=== PATIENT | female | born 1925 | race Caucasian/White ===

== ENCOUNTER 2016-07-25 18:07 | Inpatient (IN) ==
[2016-07-25] MEDS ORDERED: MORPHINE 2 MG/1 ML SYRINGE IV STA (18:26)
[2016-07-25] MEDS ORDERED: NITROGLYCERIN 2% OINT 1 INCH/GM PACK TOP STA (18:26)
[2016-07-25] MEDS ORDERED: ASPIRIN 325 MG TABLET PO STA (18:26)
[2016-07-25] MEDS ORDERED: ALUM/MAG/SIMETH/LIDO VISC 1:1 30 ML BOTTLE PO STA (18:26)
[2016-07-25] MEDS ORDERED: ONDANSETRON 4 MG/2 ML VIAL IV STA (18:26)
--- NOTE | 2016-07-25 18:52 | EKG Report ---
Stationary ECG Study [facility] ER Test Date: 07/25/2016 6:51:02 PM Pat Name: CHRISTIAN MANJARREZ Department: Room: 278 Gender: F [employer]ian [employer] Developer: : 1925 Requested by: Andrew Perdue Order Number: [id number] Reading MD: LYUDMILA DISLA Intervals [place] Rate: 81 P: 82 NH: 271 QRS: -51 QRSD: 141 T: 67 QT: 431 QTc: 468 Interpretive Statements SINUS RHYTHM WITH PROLONGED [place] INTERVAL MARKED LEFT AXIS DEVIATION LEFT BUNDLE BRANCH BLOCK Electronically Signed On 07-26-16 14:25:53 CDT by LYUDMILA DISLA [email or web address]
[2016-07-25] MEDS ORDERED: ONDANSETRON 4 MG/2 ML VIAL ONE (19:10)
[2016-07-25] MEDS ORDERED: NITROGLYCERIN 2% OINT 1 INCH/GM PACK TOP ONE (19:10)
[2016-07-25] MEDS ORDERED: ALUM/MAG/SIMETH/LIDO VISC 1:1 30 ML BOTTLE PO ONE (19:11)
[2016-07-25] MEDS ORDERED: MORPHINE 2 MG/1 ML SYRINGE ONE (19:11)
[2016-07-25] MEDS ORDERED: ASPIRIN 325 MG TABLET ONE (19:11)
--- NOTE | 2016-07-25 19:17 | XRay Report ---
XR chest 1V portable Indication: Chest pain. Comparison: Chest x-ray 07/22/2016 chest x-ray 09/11/2015. Technique: Portable AP chest was performed. Findings: Borderline to mild cardiomegaly is stable. F is chronic calcification of the aortic knob and mild ectasia of the thoracic aorta also is stable. Density in the upper right paratracheal region that likely in part reflects vascular opacification is stable. Trachea is in midline. Cardiac pacemaker is stable. Lungs are clear. Minimal blunting left costophrenic angle is present. Bones and soft tissues demonstrate no acute findings. Right-sided rotator cuff tear is not excluded. Impression: 1. Appearance of the chest is stable over the time frame of comparison. No active process is demonstrated. 07/25/2016 7:13 PM PROCEDURE INTERPRETED AT [facility] DEPARTMENT OF RADIOLOGY Final Report Signed by: Dr. Chris Lin
[2016-07-25 19:27] LABS: Basophils % 0.6 % (0.0-0.8); Eosinophils # 0.3 10*3/uL (0.0-0.87); Eosinophils % 3.7 % (0.00-10.9); Hematocrit 39.4 VOL% (35.7-47.0); Hemoglobin 13.1 GM/DL (12.0-16.0); Immature Granulocytes % 0.6 %; Immature Granulocytes Absolute 0.04 #; Lymphocytes # 1.4 10*3/uL (1.4-4.0); Lymphocytes % 20.6 % (21.3-54.2); Mean Corpuscular HGB Conc 33.2 GM/DL (32-36); Mean Corpuscular Hemoglobin 31 PG (27-34); Mean Corpuscular Volume 93.1 FL (87-102); Mean Platelet Volume 10.4 FL (9.6-12.0); Monocytes # 0.6 10*3/uL (0.11-0.8); Monocytes % 8.2 % (1.7-12.7); Neutrophils # 4.5 10*3/uL (1.4-7.4); Neutrophils % 66.3 % (38.7-73.9); Platelet Count 225 T/CUMM (130-400); Red Blood Count 4.23 MC/CUMM (3.8-5.5); Red Cell Distribution Width 13.2 % (9.3-17.3); White Blood Count 6.8 T/CUMM (4-12)
[2016-07-25 19:34] LABS: PT Patient Result 10.6 SECS
[2016-07-25 19:37] LABS: Alanine Aminotransferase 13 U/L (13-56); Albumin 3.3 G/DL (3.4-5.0); Alkaline Phosphatase 66 U/L (45-117); Aspartate Amino Transferase 18 U/L (0-37); Bilirubin,Total < 0.39 MG/DL (0.2-1.0); Blood Urea Nitrogen 24 MG/DL (7-18); Calcium 8.9 MG/DL (8.5-10.1); Glucose 153 MG/DL (74-106); Osmolality,Calculated 285.4 MOS/KG (273-304); Potassium 4.1 MMOL/L (3.5-5.1); Sodium 140 MMOL/L (136-145); Total Protein 6.5 G/DL (6.4-8.3)
--- NOTE | 2016-07-25 19:46 | Emergency Department Note ---
Parisa Olivier Gwan, am scribing for, and in the presence of, Andrew Lyon MD 18 :41. Camron Olivier Charles R, MD, personally performed the services described in this documentation, ascribed by Destiney Mccauley in my presence, and it is both accurate and complete 946 . Arrival - Arrival Chief Complaint: Chest Pain Stated Complaint: Chest Pain/Pace maker ED Nursing Triage Note: pacemaker was placed on Thur per Dr Ross - pt states that she has been having chest pain onset on Sat Mode of Arrival: Wheelchair Limitations: No Limitations Source: Patient, Significant other, Family, Old Records Reviewed, RN Notes Reviewed Time Seen by Provider: 07/25/16 18:18 - History of Present Illness HPI Narrative: Patient is a 89 y/o white female who presents to the ED with a c/o pain to bilateral shoulders, chest discomfort and generalized weakness. Family confirmed that pt had pacemaker inserted by Dr. Ross 07/21/2016 due to problems with heart rhythm and that pt has had generalized weakness and generalized body aches prior to procedure. Patient also has a harness across her left shoulder. Family stated that the harness was placed to limit ROM after pacemaker was placed. Patient describes her chest pain as a "sunken" feeling, that she has "weight" on her chest with some fluttering. Patient continued to say that when any muscle on her body is touched, she has a shooting pain that radiates all over her body. She confirmed that her muscle pain has an onset 1 year ago and that the onset of remaining sxs have an onset 2 days ago. She denies any hx of heart disease or heart cath. During exam, patient had no signs of distress and was awake and alert. Onset (ago): day(s) Consistency: constant Severity: moderate Date of Last Menstrual Period: dereje Allergies/Adverse Reactions: Allergies Allergy/AdvReac Type Severity Reaction Status Date / Time latex Allergy Mild Rash/Tears Verified 09/10/15 15:57 Skin metronidazole [From Flagyl] Allergy Unknown/Unable Verified 09/10/15 15:57 to obtain sulfamethoxazole AdvReac Intermediate Severe Verified 09/10/15 15:57 [From Bactrim] Diarrhea/Nausea trimethoprim [From Bactrim] AdvReac Intermediate Severe Verified 09/10/15 15:57 Diarrhea/Nausea Home Medications: Home Medications Medication Instructions Recorded Confirmed Type Anastrozole 1 mg PO DAILY 02/19/15 07/25/16 History Aspirin [Ecotrin] 81 mg PO DAILY 02/19/15 07/25/16 History Citalopram [CeleXA] 40 mg PO DAILY 02/19/15 07/25/16 History Latanoprost [Latanoprost 0.005 % 1 drop BOTH EYES BEDTIME 02/19/15 07/25/16 History Oph Soln] Levothyroxine Tab [Synthroid Tab] 175 mcg PO DAILY 02/19/15 07/25/16 History Temazepam [Restoril] 15 mg PO BEDTIME PRN 02/19/15 07/25/16 History Triamterene/Hctz 75-50 Tab 1 tablet PO QAM 02/19/15 07/25/16 History [Maxzide 75-50] ALPRAZolam [Alprazolam] 0.5 mg PO 1200 09/10/15 07/25/16 History Calcium (Citr)/Vit D 200-125 1 tablet PO BEDTIME 09/10/15 07/25/16 History [Citracal + D] Donepezil [Aricept] 10 mg PO DAILY 09/10/15 07/25/16 History Meclizine [Antivert] 25 mg PO TID PRN 09/10/15 07/25/16 History Phrkk-S-Gfqtdymtemwtn [Beano] 2 tablet PO TID W/MEALS PRN 07/21/16 07/25/16 History Cheratussin Ac Syp 2 teaspoon PO QID PRN 07/21/16 07/25/16 History Fluticasone 50 Mcg Nasal [place] 1 spray BOTH NARES BID PRN 07/21/16 07/25/16 History [Flonase Nasal [place]] Lidocaine HCl [Lidocaine 3% Cream] See Protocol TOP DIRECTED PRN 07/21/16 History Ondansetron Odt Tab [Zofran Odt] 4 mg SL Q8HR PRN 07/21/16 07/25/16 History Oxycodone HCl/Acetaminophen 0.5 tablet PO 1200 07/21/16 07/25/16 History [Oxycodone-Acetaminophen 10-325] Oxycodone HCl/Acetaminophen 1 tablet PO BEDTIME 07/21/16 07/25/16 History [Oxycodone-Acetaminophen 10-325] Sodium Bicarbonate/Sod Citrat 1 tablet PO DIRECTED PRN 07/21/16 07/25/16 History [Vivi-[place] Heartburn Tab Eff] Cyanocobalamin (Vitamin B-12) 2,500 mcg PO BID 07/25/16 07/25/16 History [Vitamin B12] Multivitamin [One Daily 1 each PO DAILY 07/25/16 07/25/16 History Multivitamin] glipiZIDE [Glipizide ER] 2.5 mg PO DAILY 07/25/16 07/25/16 History Review of System - Review of System 12 point system: reviewed and no additional remarkable complaints except as stated - Review of System Constitutional: Present: as per HPI, weakness. Absent: chills, fever Eyes: Absent: discharge, pain Head/Ears/Nose/Throat: Absent: earache Respiratory: Absent: cough Cardiovascular: Present: as per HPI, chest pain Gastrointestinal: Absent: abdominal pain, nausea, vomiting, diarrhea Genitourinary female: Absent: dysuria Musculoskeletal: Present: arthralgia, other (bilateral shoulder pain ). Absent : arm pain, leg pain, neck pain Skin: Absent: rash, lesions Neurological: Present: as per HPI, weakness, other (muscle/nerve pain ) Psychiatric: Absent: anxiety, depression Medical,Surgical,& Family Hx - Medical History Cardio: History of: Hypertension, Pacemaker, Cardiovascular Problems (A fib) Psychological: History of: Anxiety Disorders Neurology: No history of: Seizures HEENT: History of: Ear Problem (Ear Popping, Mild Loss), Eye Problem (Cataracts ; Glasses), Glaucoma Endocrine: History of: Diabetes Mellitus (NIDDM), Dyslipidemia (Off Cholesterol meds), Thyroid Disorder Respiratory: History of: Respiratory Problems (Dr. Daniels; Flu Vac Current 2014- 2015) No history of: Pneumonia (Pneum Vac 12/25/14) Gastrointestinal: History of: Gastrointestinal Cancer (Colon), GI Problems (Hx Ulcers) Musculoskeletal: History of: Musculoskeletal Problems (OA; Lt shoulder Pain) Hematology: History of: Bleeding Problems (Transfusion with Colon Surgery) No history of: Blood Transfusion Reaction Reproductive: History of: Breast Cancer Other: History of: Anesthesia Reactions (Able to feel everything that happened during a colon scope), Cancer (Colon; Breast) No history of: Skin Problems - Surgical History HEENT Surgeries: Surgical HX of: Eye Surgery (Cataract Rt/Lt; 09/14/15 Sched for Rt Ectropian Repair), Thyroid Surgery (Total Thyroidectomy), Tonsilectomy & Adenoidectomy (1943) Abdominal Surgeries: Surgical HX of: Abdominal Surgery (Colectomy), Colonoscopy (Dr. Franco) Reproductive Surgeries: Surgical HX of;: Gynecologic Surgery (RT/LT Mastectomy) Orthopedic Surgeries: Surgical HX of;: Orthopedic Surgery (Shoulder Muscle Surgery;Pinning 02/2015 Lt Arm), Total Knee Replacement (RT/LT) - Family History Family History: Reports;: Family Cancer, Family Diabetes, Family Heart Disease, Family Hypertension - Social History Smoking Status: Never smoker Frequency of Alcohol Use: None Type of Drug Use: None Exam Vital Signs: Vital Signs Temperature 97.2 F L 07/25/16 18:12 Pulse Rate 90 07/25/16 18:35 Respiratory Rate 22 07/25/16 18:35 Blood Pressure 189/94 07/25/16 18:35 O2 Sat by Pulse Oximetry 97 07/25/16 18:35 - General General appearance: alert, in no apparent distress - Head Head exam: Present: atraumatic, normocephalic - Eye Eye exam: Present: normal appearance, PERRL, EOMI - ENT ENT exam: Present: normal oropharynx, mucous membranes moist, TM's normal bilaterally, normal external ear exam - Neck Neck exam: Present: full ROM, trachea midline. Absent: tenderness - Chest Chest inspection: Present: normal inspection (Patient has harness in place across left shouler ), symmetric chest wall rise, tenderness (reproducible pain to chest wall, clavicle and bilateral shoulders), other (no erythema or irritation to pacemaker site ) - Respiratory Respiratory exam: Present: normal lung sounds bilaterally, rales. Absent: respiratory distress - Cardiovascular Cardiovascular exam: Present: regular rate, normal rhythm - Abdominal Exam Abdominal exam: Present: soft, normal bowel sounds. Absent: distention, tenderness - Extremities Exam Extremities exam: Present: other (+2 pitting edema ) - Back Exam Back exam: Absent: tenderness - Neurological Exam Neurological exam: Present: alert, oriented X3. Absent: motor sensory deficit - Psychiatric Psychiatric exam: Present: normal affect, normal mood - Skin Skin exam: Present: warm, dry, intact, normal color Course - Consultations Time: 21:32 Results - Labs CBC & BMP: 07/25/16 19:00 07/25/16 19:00 Lab Results: I have reviewed the patients labs Labs: Laboratory Tests 07/25/16 07/25/16 07/25/16 19:00 19:00 19:00 WBC 6.8 RBC 4.23 Hgb 13.1 Hct 39.4 Plt Count 225 Lymph % (Auto) 20.6 L INR 1.0 PT Patient/Control Mix 10.6 Sodium 140 Potassium 4.1 Chloride 104 Carbon Dioxide 28 BUN 24 H Creatinine 1.50 H Glucose 153 H Albumin 3.3 L Albumin/Globulin Ratio 1.0 L Lipase 152.0 - Diagnostic Findings Procedure: Chest x-ray: report reviewed by me (Appearance of the chest is stable over the time frame of comparison. No active process is demonstrated. ) Disposition Clinical Impression: PAF (paroxysmal atrial fibrillation), Status post placement of cardiac pacemaker, Chest pain, Atypical chest pain, Chronic back pain, Sick sinus syndrome, Chronic pain syndrome Case discussed with: patient, patient's family Disposition: Still a Patient Condition: Stable Time of Disposition: 21:35
[2016-07-25] MEDS ORDERED: DEXTROSE 50% 25 GM/50 ML VIAL IV PRN (23:22)
[2016-07-25] MEDS ORDERED: FLUTICASONE 50 MCG NASAL SPRAY 16 GM BOTTLE BOTH NARES PRN (23:22)
[2016-07-25] MEDS ORDERED: ONDANSETRON 4 MG/2 ML VIAL IV PRN (23:22)
[2016-07-25] MEDS ORDERED: MAGNESIUM SULF RIDER 2 GM in PREMIX 1 EACH IV PRN (23:22)
[2016-07-25] MEDS ORDERED: TEMAZEPAM 15 MG CAPSULE PO PRN (23:22)
[2016-07-25] MEDS ORDERED: guaiFENesin/CODEINE 5 ML LIQUID PO PRN (23:22)
[2016-07-25] MEDS ORDERED: MAGNESIUM SULF RIDER 4 GM in PREMIX 1 EACH IV PRN (23:22)
[2016-07-25] MEDS ORDERED: SODIUM CITRATE PO PRN (23:22)
[2016-07-25] MEDS ORDERED: [UNRECOGNIZED DRUG - OTHER] PO PRN (23:22)
[2016-07-25] MEDS ORDERED: SODIUM BICARBONATE PO PRN (23:22)
[2016-07-25] MEDS ORDERED: ALPHA D GALACTOSIDASE PO PRN (23:22)
[2016-07-25] MEDS ORDERED: MORPHINE 2 MG/1 ML SYRINGE IV PRN (23:22)
[2016-07-25] MEDS ORDERED: GLUCAGON 1 MG VIAL IM PRN (23:22)
[2016-07-25] MEDS ORDERED: POTASSIUM CHLORIDE 20 MEQ TABLET PO PRN (23:22)
[2016-07-25] MEDS ORDERED: MECLIZINE 25 MG TABLET PO PRN (23:22)
[2016-07-25] MEDS ORDERED: hydrALAZINE 25 MG TABLET PO PRN (23:31)
[2016-07-26] MEDS: SODIUM CHLORIDE 0.9% 1,000 ML IV SCH (00:30)
[2016-07-26 05:10] LABS: Basophils # 0.1 10*3/uL (0.0-0.2); Basophils % 0.7 % (0.0-0.8); Eosinophils # 0.3 10*3/uL (0.0-0.87); Eosinophils % 3.3 % (0.00-10.9); Hematocrit 34.9 VOL% (35.7-47.0); Hemoglobin 11.2 GM/DL (12.0-16.0); Immature Granulocytes % 0.4 %; Immature Granulocytes Absolute 0.03 #; Lymphocytes # 1.5 10*3/uL (1.4-4.0); Lymphocytes % 19.4 % (21.3-54.2); Mean Corpuscular HGB Conc 32.1 GM/DL (32-36); Mean Corpuscular Hemoglobin 30 PG (27-34); Mean Corpuscular Volume 93.6 FL (87-102); Mean Platelet Volume 10.2 FL (9.6-12.0); Monocytes # 0.8 10*3/uL (0.11-0.8); Monocytes % 9.9 % (1.7-12.7); Neutrophils % 66.3 % (38.7-73.9); Platelet Count 197 T/CUMM (130-400); Red Blood Count 3.73 MC/CUMM (3.8-5.5); Red Cell Distribution Width 13.2 % (9.3-17.3); White Blood Count 7.5 T/CUMM (4-12)
[2016-07-26 05:53] LABS: Albumin 2.9 G/DL (3.4-5.0); Bilirubin,Total 0.5 MG/DL (0.2-1.0); Calcium 8.6 MG/DL (8.5-10.1); Magnesium 2.1 MG/DL (1.8-2.4); Osmolality,Calculated 291.1 MOS/KG (273-304); Potassium 4.1 MMOL/L (3.5-5.1); Total Protein 5.6 G/DL (6.4-8.3)
[2016-07-26] MEDS: LEVOTHYROXINE 175 MCG TABLET PO SCH (06:30)
--- NOTE | 2016-07-26 06:30 | EKG Report ---
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
[2016-07-26] MEDS: INSULIN REGULAR 100 UNIT/ML SUBCUT SCH ×4 (07:30→23:28)
[2016-07-26] MEDS ORDERED: ANASTROZOLE 1 MG TABLET PO SCH (09:00)
[2016-07-26] MEDS ORDERED: NON-FORMULARY MEDICATION (Cyanocobalamin (Vitamin B-12) [Vitamin B12] 2,500 MCG) PO SCH (09:00)
--- NOTE | 2016-07-26 09:28 | XRay Report ---
XR chest 1V portable Indication: SOB Comparison: Chest x-ray dated July 25, 2016 Technique: Single frontal view of the chest Findings: Cardiac mediastinal silhouette is stable configuration and remains somewhat prominent. Cardiac pacemaker apparatus again noted. There is stable prominence of the right paratracheal region. Chronic change of the lungs present. Mildly increased left basilar atelectasis. Osseous and surrounding soft tissue structures appear grossly unchanged. IMPRESSION: Mildly increased left basilar atelectasis. Other findings appear unchanged. PROCEDURE INTERPRETED AT [facility] DEPARTMENT OF RADIOLOGY Final Report Signed by: Dr Julián Duque
[2016-07-26] MEDS ORDERED: ALPRAZolam 0.5 MG TABLET PO SCH (12:00)
[2016-07-26] MEDS ORDERED: oxyCODONE/ACETAMINOPHEN 5-325 MG TABLET PO SCH ×2 (12:00→21:00)
[2016-07-26] MEDS: ASPIRIN EC 81 MG TABLET PO SCH (13:00)
[2016-07-26] MEDS: CITALOPRAM 20 MG TABLET PO SCH (13:00)
[2016-07-26] MEDS: MULTIVITAMIN (CENTRUM) TABLET PO SCH (13:01)
[2016-07-26] MEDS: DONEPEZIL 10 MG TABLET PO SCH (13:01)
[2016-07-26] MEDS: TRIAMTERENE/HCTZ 75-50 MG TABLET PO SCH (13:02)
[2016-07-26] MEDS: PANTOPRAZOLE 40 MG TABLET PO SCH (13:02)
--- NOTE | 2016-07-26 16:45 | Pain Management Consult Note ---
Assessment and Plan (1) Chronic pain syndrome Status: Acute Assessment and plan: There is no real hx c/w fibomyalgia or myositis but I will get labs of CK, CRP, and check neuropathy labs such as B12, thyroid function etc. Her hyperpathia is diffuse and not always present. Neuro exam and mental status are rather normal. Despite family reporting allodynia I dont see it on exam today. Trial of Lyrica is warranted and I'm wondering if chemo Anastrozole could be playing a role in the hyperpathia development. She is followed by Dr. Jackson. Current Visit: Yes History of Present Illness Chief complaint: body hyperpathia getting worse over time History of present illness: Ms. Flowers is a 89 year old female with hyperpathia to presssure but no obvious allodynia, however family reports this. It encompasses legs and arms but apparently does not bother her lying on her back. Family notes anxiety component and some relief with increasing opioid doses. She is significant fall risk but really cant get up or care for her self over the past year. Home Medications Medication Instructions Recorded Confirmed Type Anastrozole 1 mg PO DAILY 02/19/15 07/25/16 History Aspirin [Ecotrin] 81 mg PO DAILY 02/19/15 07/25/16 History Citalopram [CeleXA] 40 mg PO DAILY 02/19/15 07/25/16 History Latanoprost [Latanoprost 0.005 % 1 drop BOTH EYES BEDTIME 02/19/15 07/25/16 History Oph Soln] Levothyroxine Tab [Synthroid Tab] 175 mcg PO DAILY 02/19/15 07/25/16 History Temazepam [Restoril] 15 mg PO BEDTIME PRN 02/19/15 07/25/16 History Triamterene/Hctz 75-50 Tab 1 tablet PO QAM 02/19/15 07/25/16 History [Maxzide 75-50] ALPRAZolam [Alprazolam] 0.5 mg PO 1200 09/10/15 07/25/16 History Calcium (Citr)/Vit D 200-125 1 tablet PO BEDTIME 09/10/15 07/25/16 History [Citracal + D] Donepezil [Aricept] 10 mg PO DAILY 09/10/15 07/25/16 History Meclizine [Antivert] 25 mg PO TID PRN 09/10/15 07/25/16 History Oswmj-U-Nuetveuqkasxo [Beano] 2 tablet PO TID W/MEALS PRN 07/21/16 07/25/16 History Cheratussin Ac Syp 2 teaspoon PO QID PRN 07/21/16 07/25/16 History Fluticasone 50 Mcg Nasal [place] 1 spray BOTH NARES BID PRN 07/21/16 07/25/16 History [Flonase Nasal [place]] Lidocaine HCl [Lidocaine 3% Cream] See Protocol TOP DIRECTED PRN 07/21/16 History Ondansetron Odt Tab [Zofran Odt] 4 mg SL Q8HR PRN 07/21/16 07/25/16 History Oxycodone HCl/Acetaminophen 0.5 tablet PO 1200 07/21/16 07/25/16 History [Oxycodone-Acetaminophen 10-325] Oxycodone HCl/Acetaminophen 1 tablet PO BEDTIME 07/21/16 07/25/16 History [Oxycodone-Acetaminophen 10-325] Sodium Bicarbonate/Sod Citrat 1 tablet PO DIRECTED PRN 07/21/16 07/25/16 History [Vivi-[place] Heartburn Tab Eff] Cyanocobalamin (Vitamin B-12) 2,500 mcg PO BID 07/25/16 07/25/16 History [Vitamin B12] Multivitamin [One Daily 1 each PO DAILY 07/25/16 07/25/16 History Multivitamin] glipiZIDE [Glipizide ER] 2.5 mg PO DAILY 07/25/16 07/25/16 History Allergies Allergy/AdvReac Type Severity Reaction Status Date / Time latex Allergy Mild Rash/Tears Verified 09/10/15 15:57 Skin metronidazole [From Flagyl] Allergy Unknown/Unable Verified 09/10/15 15:57 to obtain sulfamethoxazole AdvReac Intermediate Severe Verified 09/10/15 15:57 [From Bactrim] Diarrhea/Nausea trimethoprim [From Bactrim] AdvReac Intermediate Severe Verified 09/10/15 15:57 Diarrhea/Nausea Medical,Surgical,& Family Hx - Medical History Cardio: History of: Hypertension, Pacemaker, Cardiovascular Problems (A fib) Psychological: History of: Anxiety Disorders Neurology: No history of: Seizures HEENT: History of: Ear Problem (Ear Popping, Mild Loss), Eye Problem (Cataracts ; Glasses), Glaucoma Endocrine: History of: Diabetes Mellitus (NIDDM), Dyslipidemia (Off Cholesterol meds), Thyroid Disorder Respiratory: History of: Respiratory Problems (Dr. Daniels; Flu Vac Current 2014- 2015) No history of: Pneumonia (Pneum Vac 12/25/14) Gastrointestinal: History of: Gastrointestinal Cancer (Colon), GI Problems (Hx Ulcers) Musculoskeletal: History of: Musculoskeletal Problems (OA; Lt shoulder Pain) Hematology: History of: Bleeding Problems (Transfusion with Colon Surgery) No history of: Blood Transfusion Reaction Reproductive: History of: Breast Cancer Other: History of: Anesthesia Reactions (Able to feel everything that happened during a colon scope), Cancer (Colon; Breast) No history of: Skin Problems - Surgical History HEENT Surgeries: Surgical HX of: Eye Surgery (Cataract Rt/Lt; 09/14/15 Sched for Rt Ectropian Repair), Thyroid Surgery (Total Thyroidectomy), Tonsilectomy & Adenoidectomy (194) Abdominal Surgeries: Surgical HX of: Abdominal Surgery (Colectomy), Colonoscopy (Dr. Franco) Reproductive Surgeries: Surgical HX of;: Gynecologic Surgery (RT/LT Mastectomy) Orthopedic Surgeries: Surgical HX of;: Orthopedic Surgery (Shoulder Muscle Surgery;Pinning 02/2015 Lt Arm), Total Knee Replacement (RT/LT) - Family History Family History: Reports;: Family Cancer, Family Diabetes, Family Heart Disease, Family Hypertension - Social History Smoking Status: Never smoker Frequency of Alcohol Use: None Type of Drug Use: None Exam - Constitutional Vitals: Period Temp Pulse Resp BP Sys/Christopher Pulse Ox Last 24 Hr 96.7 F-97.5 F 60-71 14-18 115-139/58-75 91-98 Results - Labs CBC & BMP: 07/26/16 04:40 07/26/16 04:40
[2016-07-26 18:32] LABS: Free T4 (Free Thyroxine) 1.02 NG/DL (0.76-1.46); Thyroid Stimulating Hormone 11.3 uIU/ml (0.358-3.74)
--- NOTE | 2016-07-26 19:47 | ECHO Report ---
Lionel Negar Exam Date: 07/26/2016 11:10 Referring Physician: Technologist: Ambreen Crews [facility] Age: 89 Ht (in): 63 Wt (lb): 212 Gender: F Exam Location: [facility] Echo Indications: Presence of cardiac pacemaker, Chest pain, unspecified BP: 118 / 59 HR: 64 Rhythm: Sinus Technical Quality: IMPRESSIONS Normal left ventricular cavity size. Mild concentric left ventricular hypertrophy. Left ventricular ejection fraction is estimated at 55%. Grade 1 diastolic dysfunction. Mild biatrial enlargement. Aortic valve sclerosis, without stenosis or insufficiency. Mitral annular calcification. Mild pulmonic regurgitation. No pericardial effusion. MEASUREMENTS (Male / Female) Normal Values 2D ECHO LV Diastolic Diameter PLAX 4.7 cm 4.2 - 5.9 / 3.9 - 5.3 cm LV Systolic Diameter PLAX 3.2 cm LV Fractional Shortening PLAX 32.4 % IVS Diastolic Thickness 1.2 cm 0.6 - 1.0 / 0.6 - 0.9 cm LVPW Diastolic Thickness 1.2 cm 0.6 - 1.0 / 0.6 - 0.9 cm RV Internal Dim ED PLAX 2.2 cm Aortic Root Diameter 3.4 cm LA Systolic Diameter LX 4.2 cm 3.0 - 4.0 / 2.7 - 3.8 cm DOPPLER TR Peak Velocity 284.0 cm/s TR Peak Gradient 32.3 mmHg FINDINGS Left Ventricle Normal left ventricular cavity size. Mild concentric left ventricular hypertrophy. Left ventricular ejection fraction is estimated at 55%. Grade 1 diastolic dysfunction. Right Ventricle The right ventricle is normal in size and function. PM wire is seen. Right Atrium The right atrium is mildly enlarged. Left Atrium The left atrium is mildly enlarged. Mitral Valve Mildly thickened mitral valve. Mitral annular calcification. Trace insufficiency. Aortic Valve Aortic valve sclerosis without stenosis or regurgitation. Tricuspid Valve Mild tricuspid valve regurgitation. Pulmonic Valve Morphologically normal pulmonic valve. Mild pulmonary valve regurgitation. Pericardium Normal pericardium without effusion. Prominent epicardial fat. Aorta Normal ascending aorta dimension. Oral Ross (Electronically Signed) Final Date: 26 Jul 2016 19:46
[2016-07-26] MEDS ORDERED: PREGABALIN 25 MG CAPSULE PO SCH (21:00)
[2016-07-26] MEDS ORDERED: CALCIUM (CITRATE)/VITAMIN D 200 MG-125 UNIT TABLET PO SCH (21:00)
[2016-07-26] MEDS ORDERED: LATANOPROST 0.005% OPH SOLN 2.5 ML BOTTLE BOTH EYES SCH (21:00)
--- NOTE | 2016-07-26 21:27 | Cardiology History & Physical ---
Laurie Olivier April RN, am scribing for, and in the presence of, Oral Ross MD 21 :26. Assessment and Plan - Time spent with patient Time spent with patient: Greater than 30 minutes (Due to assessment, planning, documentation, medication review) (1) Atypical chest pain Status: Acute Current Visit: Yes (2) Status post placement of cardiac pacemaker Status: Chronic Assessment and plan: 89yF s/p DDD PM implant for symptomatic bradycardia. She was readmitted for worsening generalized pain. Pain consult appreciated. -Normal PM function, no pericardial effusion -Cont pain management as per pain recs. Workup pending -She is quite debilitated. PT eval tomorrow. May need swing bed if family cannot support her need while she is recovering from recent PM implant -If she is unable to tolerate, we may remove the sling. She is not using her arms much due to severe chronic pain -She will need FU with hem/onc to r/o medication induced hyperalgesia, also may consider rheum eval as o/p -She will need PM/wound check on Monday -plan d/c tomorrow Current Visit: Yes (3) Diabetes mellitus Status: Chronic Current Visit: Yes (4) HTN (hypertension) Status: Chronic Current Visit: Yes History of Present Illness Chief complaint: Chest pain History of present illness: Gold Assayer: Dr. Montejo Ms. Flowers is a 89 year old female who was first seen by inspector heating and refrigeration last month. Ms. Flowers is anxious and in pain currently so much of her history and information her symptoms is taken from her daughter and [id number]. She has a history of tachycardia, paroxysmal atrial fibrillation, dyslipidemia, hypothyroidism, breast cancer, NIDDM, hypertension, and COPD. Echo done July with ejection fraction 65%. Echo done July 04, 2016 with ejection fraction 65%.She had dual-chamber pacemaker placed by Dr. Ross July 21, 2016 for documented nonreversible symptomatic bradycardia due to sinus node dysfunction and recurrent presyncope. Other surgeries include bilateral mastectomy, thyroidectomy, bilateral cataract, tonsillectomy, right shoulder, bilateral knee replacement, and colectomy. Family history includes brother with CVA and hypertension in parents siblings and son with cancer. She reports she is a lifetime non-smoker. She lives with her daughter and ambulates with the assistance of a walker and two people. Patient reports she hurts all over and has been for about a year, reporting that she has severe pain when they are bathing her. They reports she has been complaining of pressure in her chest, but unlike she has 100 pound weight on her chest since she was discharged last week. This pain got worse yesterday so she presented to the emergency department for further evaluation. She denies ever having had a heart cath or any history of heart disease. Family reports she is chronically short of breath with increasing dyspnea on exertion, extremely weak, and also has palpitations. Patient is currently resting in bed in no acute distress. She does continue to complain of chest heaviness and shortness of breath. Oxygen is in use via nasal cannula. Pacemaker dressing to left chest is dry and intact, she has a sling in place to left arm. She is difficult to assess because she cries out in pain whenever she is touched even as nurse is trying to get her sleeve up to check her IV. She has been afebrile since admission, blood pressure 122/66. Imdur currently shows sinus rhythm with pacing, heart rate in the 60s. EKG this morning showed sinus rhythm with first-degree block, heart rate of 61. Pacemaker has been interrogated. It shows sinus tachycardia/SVT around 530 yesterday afternoon with heart rates 158-163. Chest x-ray was unremarkable. Echo is pending. Home Medications Medication Instructions Recorded Confirmed Type Anastrozole 1 mg PO DAILY 02/19/15 07/25/16 History Aspirin [Ecotrin] 81 mg PO DAILY 02/19/15 07/25/16 History Citalopram [CeleXA] 40 mg PO DAILY 02/19/15 07/25/16 History Latanoprost [Latanoprost 0.005 % 1 drop BOTH EYES BEDTIME 02/19/15 07/25/16 History Oph Soln] Levothyroxine Tab [Synthroid Tab] 175 mcg PO DAILY 02/19/15 07/25/16 History Temazepam [Restoril] 15 mg PO BEDTIME PRN 02/19/15 07/25/16 History Triamterene/Hctz 75-50 Tab 1 tablet PO QAM 02/19/15 07/25/16 History [Maxzide 75-50] ALPRAZolam [Alprazolam] 0.5 mg PO 1200 09/10/15 07/25/16 History Calcium (Citr)/Vit D 200-125 1 tablet PO BEDTIME 09/10/15 07/25/16 History [Citracal + D] Donepezil [Aricept] 10 mg PO DAILY 09/10/15 07/25/16 History Meclizine [Antivert] 25 mg PO TID PRN 09/10/15 07/25/16 History Fulvl-R-Zpbsbnzgtdphz [Beano] 2 tablet PO TID W/MEALS PRN 07/21/16 07/25/16 History Cheratussin Ac Syp 2 teaspoon PO QID PRN 07/21/16 07/25/16 History Fluticasone 50 Mcg Nasal [place] 1 spray BOTH NARES BID PRN 07/21/16 07/25/16 History [Flonase Nasal [place]] Lidocaine HCl [Lidocaine 3% Cream] See Protocol TOP DIRECTED PRN 07/21/16 History Ondansetron Odt Tab [Zofran Odt] 4 mg SL Q8HR PRN 07/21/16 07/25/16 History Oxycodone HCl/Acetaminophen 0.5 tablet PO 1200 07/21/16 07/25/16 History [Oxycodone-Acetaminophen 10-325] Oxycodone HCl/Acetaminophen 1 tablet PO BEDTIME 07/21/16 07/25/16 History [Oxycodone-Acetaminophen 10-325] Sodium Bicarbonate/Sod Citrat 1 tablet PO DIRECTED PRN 07/21/16 07/25/16 History [Vivi-[place] Heartburn Tab Eff] Cyanocobalamin (Vitamin B-12) 2,500 mcg PO BID 07/25/16 07/25/16 History [Vitamin B12] Multivitamin [One Daily 1 each PO DAILY 07/25/16 07/25/16 History Multivitamin] glipiZIDE [Glipizide ER] 2.5 mg PO DAILY 07/25/16 07/25/16 History Allergies Allergy/AdvReac Type Severity Reaction Status Date / Time latex Allergy Mild Rash/Tears Verified 09/10/15 15:57 Skin metronidazole [From Flagyl] Allergy Unknown/Unable Verified 09/10/15 15:57 to obtain sulfamethoxazole AdvReac Intermediate Severe Verified 09/10/15 15:57 [From Bactrim] Diarrhea/Nausea trimethoprim [From Bactrim] AdvReac Intermediate Severe Verified 09/10/15 15:57 Diarrhea/Nausea - Constitutional Constitutional: Present: as per HPI - EENT Eyes: Present: requires corrective lense Ears: Present: decreased hearing, tinnitus. Absent: ear pain Nose, mouth and throat: Present: neck pain. Absent: dysphagia, epistaxis, headache(s) - Cardiovascular Cardiovascular: Present: chest pain at rest, chest pain with activity, dyspnea, dyspnea on exertion, edema, palpitations - Respiratory Respiratory: Present: cough, dyspnea, dyspnea on exertion. Absent: hemoptysis, wheezing - Gastrointestinal Gastrointestinal: Present: constipation. Absent: abdominal pain, diarrhea, hematemesis, hematochezia, melena, nausea, vomiting - Genitourinary Genitourinary: Absent: dysuria, hematuria - Musculoskeletal Musculoskeletal: Present: back pain, limited range of motion, muscle weakness - Neurological Neurological: Present: abnormal gait, abnormal speech, frequent falls. Absent: headache(s) - Psychiatric Psychiatric: Present: anxiety - Endocrine Endocrine: Present: fatigue Medical,Surgical,& Family Hx - Medical History Cardio: History of: Cardiac Dysrhythmia (Paroxysmal atrial fibrillation), Hypertension, Pacemaker Psychological: History of: Anxiety Disorders HEENT: History of: Ear Problem (Ear Popping, Mild Loss), Eye Problem (Cataracts ; Glasses), Glaucoma Endocrine: History of: Diabetes Mellitus (NIDDM), Dyslipidemia (Off Cholesterol meds), Thyroid Disorder Respiratory: History of: COPD Gastrointestinal: History of: Gastrointestinal Cancer (Colon), GI Problems (Hx Ulcers) Musculoskeletal: History of: Musculoskeletal Problems (OA; Lt shoulder Pain) Hematology: History of: Bleeding Problems (Transfusion with Colon Surgery) Reproductive: History of: Breast Cancer Other: History of: Anesthesia Reactions (Able to feel everything that happened during a colon scope), Cancer (Colon; Breast) - Surgical History HEENT Surgeries: Surgical HX of: Eye Surgery (Bilateral cataract), Thyroid Surgery (Total Thyroidectomy), Tonsilectomy & Adenoidectomy (1943) Abdominal Surgeries: Surgical HX of: Abdominal Surgery (Colectomy), Colonoscopy (Dr. Franco) Reproductive Surgeries: Surgical HX of;: Breast Surgery (Bilateral mastectomy) Orthopedic Surgeries: Surgical HX of;: Orthopedic Surgery (Right shoulder Muscle Surgery;Pinning 02/2015 Lt Arm), Total Knee Replacement (RT/LT) - Family History Family History: Reports;: Family Cancer (Parents siblings son), Family Hypertension (Brother), Family Stroke (Brother) - Social History Smoking Status: Never smoker Have you smoked in the last 12 months: No Frequency of Alcohol Use: None Type of Drug Use: None Lives With:: Children Functional capacity: uses cane/walker Cardiology Physical Exam - Constitutional Vitals: Vital Signs Temp Pulse Resp BP Pulse Ox 96.7 F L 65 17 122/66 93 L 07/26/16 07:14 07/26/16 07:14 07/26/16 07:14 07/26/16 07:14 07/26/16 07:14 Intake and Output 07/25/16 07/26/16 07/26/16 22:59 06:59 14:59 Intake Total 100 / 100 Balance 100 / 100 Intake: Oral 100 / 100 Other: Voiding Method Bedpan # Voids 1 Weight 227 lb General appearance: no acute distress, morbidly obese - Head Head exam: Absent: hematoma, laceration - Respiratory Respiratory exam: Present: chest wall tenderness, rales, other (Oxygen via nasal cannula). Absent: accessory muscle use - Cardiovascular Cardiovascular exam: Present: regular rate and rhythm, systolic murmur - GI/Abdominal GI/Abdominal exam: Present: normal bowel sounds, tenderness, soft - Extremities Exam Extremities exam: Present: edema - Neurological Exam Neurological exam: Present: alert, oriented X3 - Psychiatric Psychiatric exam: Present: anxious - Skin Skin exam: Present: warm, dry Result/EKG - Labs CBC & BMP: 07/26/16 04:40 07/26/16 04:40 Lab Results: I have reviewed the past 24 hour labs Labs: Laboratory Results - last 24 hr 07/26/16 07/26/16 07/26/16 00:09 00:22 04:40 WBC 7.5 RBC 3.73 L Hgb 11.2 L Hct 34.9 L MCV 93.6 MCH 30 MCHC 32.1 RDW 13.2 Plt Count 197 MPV 10.2 Neut % (Auto) 66.3 Lymph % (Auto) 19.4 L Casey % (Auto) 9.9 Eos % (Auto) 3.3 Baso % (Auto) 0.7 Neut # (Auto) 5.0 Lymph # (Auto) 1.5 Casey # (Auto) 0.8 Eos # (Auto) 0.3 Baso # (Auto) 0.1 Immature Gran % 0.4 Nucleated RBC % 0.0 Immature Gran # 0.03 Nucleated RBCs # 0.00 Sodium Potassium Chloride Carbon Dioxide Anion Gap BUN Creatinine GFR Calculation BUN/Creatinine Ratio Glucose POC Glucose 267 H Calculated Osmolality Calcium Magnesium Total Bilirubin AST ALT Alkaline Phosphatase Troponin I < 0.015 B-Natriuretic Peptide Total Protein Albumin Globulin Albumin/Globulin Ratio 07/26/16 07/26/16 07/26/16 04:40 04:40 06:27 WBC RBC Hgb Hct MCV MCH MCHC RDW Plt Count MPV Neut % (Auto) Lymph % (Auto) Casey % (Auto) Eos % (Auto) Baso % (Auto) Neut # (Auto) Lymph # (Auto) Casey # (Auto) Eos # (Auto) Baso # (Auto) Immature Gran % Nucleated RBC % Immature Gran # Nucleated RBCs # Sodium 142 Potassium 4.1 Chloride 104 Carbon Dioxide 30 Anion Gap 12.1 BUN 28 H Creatinine 1.40 H GFR Calculation 39 BUN/Creatinine Ratio 20.00 Glucose 145 H POC Glucose 138 H Calculated Osmolality 291.1 Calcium 8.6 Magnesium 2.1 Total Bilirubin 0.50 AST 14 ALT 12 L Alkaline Phosphatase 55 Troponin I B-Natriuretic Peptide 65 Total Protein 5.6 L Albumin 2.9 L Globulin 2.7 Albumin/Globulin Ratio 1.0 L - EKG EKG results: interpreted by me EKG shows: sinus rhythm Vandana Olivier Attila, MD, personally performed the services described in this documentation, ascribed by Ninoska Sullivan RN in my presence, and it is both accurate and complete .
[2016-07-27] MEDS: SODIUM CHLORIDE 0.9% 1,000 ML IV SCH (01:22)
[2016-07-27 06:10] LABS: Basophils % 0.7 % (0.0-0.8); Eosinophils # 0.3 10*3/uL (0.0-0.87); Eosinophils % 5.7 % (0.00-10.9); Immature Granulocytes % 0.5 %; Immature Granulocytes Absolute 0.03 #; Lymphocytes # 1.5 10*3/uL (1.4-4.0); Lymphocytes % 25.1 % (21.3-54.2); Mean Corpuscular HGB Conc 32.4 GM/DL (32-36); Mean Corpuscular Hemoglobin 30 PG (27-34); Mean Corpuscular Volume 93.2 FL (87-102); Mean Platelet Volume 10.9 FL (9.6-12.0); Monocytes # 0.6 10*3/uL (0.11-0.8); Monocytes % 10.5 % (1.7-12.7); Neutrophils # 3.3 10*3/uL (1.4-7.4); Neutrophils % 57.5 % (38.7-73.9); Platelet Count 211 T/CUMM (130-400); Red Blood Count 3.65 MC/CUMM (3.8-5.5); Red Cell Distribution Width 13.2 % (9.3-17.3); White Blood Count 5.8 T/CUMM (4-12)
[2016-07-27] MEDS: LEVOTHYROXINE 175 MCG TABLET PO SCH (06:41)
[2016-07-27 06:43] LABS: Calcium 8.4 MG/DL (8.5-10.1); Magnesium 2.4 MG/DL (1.8-2.4); Osmolality,Calculated 286.3 MOS/KG (273-304); Potassium 4.2 MMOL/L (3.5-5.1)
--- NOTE | 2016-07-27 07:55 | Oncology Consult Note ---
Assessment and Plan (1) Breast cancer Status: Acute Assessment and plan: DC anastrozole permanently. She can keep her previously scheduled outpt appointment with me. Current Visit: Yes (2) Tachy-sommer syndrome Status: Acute Current Visit: No (3) Status post placement of cardiac pacemaker Status: Chronic Current Visit: Yes (4) Chronic pain syndrome Status: Acute Current Visit: Yes History of Present Illness History of present illness: Ms. Flowers is a 89 year old female with a history of breast cancer dating back to 2004. Her most recent breast cancer was in her left breast in 2012. She had mastectomies for both cancers and has been on anastrozole for at least 9 years now. She was initially treated with tamoxifen after her first breast cancer. My plan was to discontinue anastrozole of the early part of next year anyway. She is currently admitted with diffuse pain the pain management is suspicious may be secondary to her anastrozole. I am perfectly fine discontinuing the anastrozole permanently from this point forward. Given her advanced age and the number of years she has been on this therapy, I do not think it is of much benefit at this time anyway. I will continue to see her in clinic as previously scheduled. The only other therapy that I have given her is Prolia to keep her bones healthy. Home Medications Medication Instructions Recorded Confirmed Type Anastrozole 1 mg PO DAILY 02/19/15 07/25/16 History Aspirin [Ecotrin] 81 mg PO DAILY 02/19/15 07/25/16 History Citalopram [CeleXA] 40 mg PO DAILY 02/19/15 07/25/16 History Latanoprost [Latanoprost 0.005 % 1 drop BOTH EYES BEDTIME 02/19/15 07/25/16 History Oph Soln] Levothyroxine Tab [Synthroid Tab] 175 mcg PO DAILY 02/19/15 07/25/16 History Temazepam [Restoril] 15 mg PO BEDTIME PRN 02/19/15 07/25/16 History Triamterene/Hctz 75-50 Tab 1 tablet PO QAM 02/19/15 07/25/16 History [Maxzide 75-50] ALPRAZolam [Alprazolam] 0.5 mg PO 1200 09/10/15 07/25/16 History Calcium (Citr)/Vit D 200-125 1 tablet PO BEDTIME 09/10/15 07/25/16 History [Citracal + D] Donepezil [Aricept] 10 mg PO DAILY 09/10/15 07/25/16 History Meclizine [Antivert] 25 mg PO TID PRN 09/10/15 07/25/16 History Kyugx-T-Fffuxgmfeqecg [Beano] 2 tablet PO TID W/MEALS PRN 07/21/16 07/25/16 History Cheratussin Ac Syp 2 teaspoon PO QID PRN 07/21/16 07/25/16 History Fluticasone 50 Mcg Nasal [place] 1 spray BOTH NARES BID PRN 07/21/16 07/25/16 History [Flonase Nasal [place]] Lidocaine HCl [Lidocaine 3% Cream] See Protocol TOP DIRECTED PRN 07/21/16 History Ondansetron Odt Tab [Zofran Odt] 4 mg SL Q8HR PRN 07/21/16 07/25/16 History Oxycodone HCl/Acetaminophen 0.5 tablet PO 1200 07/21/16 07/25/16 History [Oxycodone-Acetaminophen 10-325] Oxycodone HCl/Acetaminophen 1 tablet PO BEDTIME 07/21/16 07/25/16 History [Oxycodone-Acetaminophen 10-325] Sodium Bicarbonate/Sod Citrat 1 tablet PO DIRECTED PRN 07/21/16 07/25/16 History [Vivi-[place] Heartburn Tab Eff] Cyanocobalamin (Vitamin B-12) 2,500 mcg PO BID 07/25/16 07/25/16 History [Vitamin B12] Multivitamin [One Daily 1 each PO DAILY 07/25/16 07/25/16 History Multivitamin] glipiZIDE [Glipizide ER] 2.5 mg PO DAILY 07/25/16 07/25/16 History Allergies Allergy/AdvReac Type Severity Reaction Status Date / Time latex Allergy Mild Rash/Tears Verified 09/10/15 15:57 Skin metronidazole [From Flagyl] Allergy Unknown/Unable Verified 09/10/15 15:57 to obtain sulfamethoxazole AdvReac Intermediate Severe Verified 09/10/15 15:57 [From Bactrim] Diarrhea/Nausea trimethoprim [From Bactrim] AdvReac Intermediate Severe Verified 09/10/15 15:57 Diarrhea/Nausea Medical,Surgical,& Family Hx - Medical History Cardio: History of: Cardiac Dysrhythmia (Paroxysmal atrial fibrillation), Hypertension, Pacemaker, Cardiovascular Problems (A fib) Psychological: History of: Anxiety Disorders Neurology: No history of: Seizures HEENT: History of: Ear Problem (Ear Popping, Mild Loss), Eye Problem (Cataracts ; Glasses), Glaucoma Endocrine: History of: Diabetes Mellitus (NIDDM), Dyslipidemia (Off Cholesterol meds), Thyroid Disorder Respiratory: History of: COPD, Respiratory Problems (Dr. Daniels; Flu Vac Current [id number]) No history of: Pneumonia (Pneum Vac 12/25/14) Gastrointestinal: History of: Gastrointestinal Cancer (Colon), GI Problems (Hx Ulcers) Musculoskeletal: History of: Musculoskeletal Problems (OA; Lt shoulder Pain) Hematology: History of: Bleeding Problems (Transfusion with Colon Surgery) No history of: Blood Transfusion Reaction Reproductive: History of: Breast Cancer Other: History of: Anesthesia Reactions (Able to feel everything that happened during a colon scope), Cancer (Colon; Breast) No history of: Skin Problems - Surgical History HEENT Surgeries: Surgical HX of: Eye Surgery (Bilateral cataract), Thyroid Surgery (Total Thyroidectomy), Tonsilectomy & Adenoidectomy (1943) Abdominal Surgeries: Surgical HX of: Abdominal Surgery (Colectomy), Colonoscopy (Dr. Franco) Reproductive Surgeries: Surgical HX of;: Breast Surgery (Bilateral mastectomy), Gynecologic Surgery (RT/LT Mastectomy) Orthopedic Surgeries: Surgical HX of;: Orthopedic Surgery (Right shoulder Muscle Surgery;Pinning 02/2015 Lt Arm), Total Knee Replacement (RT/LT) - Family History Family History: Reports;: Family Cancer (Parents siblings son), Family Diabetes , Family Heart Disease, Family Hypertension (Brother), Family Stroke (Brother) - Social History Smoking Status: Never smoker Frequency of Alcohol Use: None Type of Drug Use: None ROS unobtainable: due to mental status Exam - Constitutional Vitals: Period Temp Pulse Resp BP Sys/Christopher Pulse Ox Last 24 Hr 96.8 F-97.7 F 60-81 18-20 112-127/54-65 94-97 General appearance: normal weight, no acute distress - Head Head Exam: Present: normocephalic, atraumatic - Eye Eye Exam: Present: EOMI Pupils: Present: PERRL - ENT ENT exam: Present: normal exam, normal oropharynx - Neck Neck exam: Absent: lymphadenopathy, thyromegaly - Respiratory Respiratory exam: Present: CTAB. Absent: wheezes - Cardiovascular Cardiovascular exam: Present: RRR. Absent: irregular rhythm, JVD - GI/Abdominal GI/Abdominal exam: Absent: ascites, distended - Neurological Exam Neurological exam: Present: alert, oriented X3 - Psychiatric Psychiatric exam: Present: normal affect, normal mood - Skin Skin exam: Present: warm, dry Results - Labs CBC & BMP: 07/27/16 04:55 07/27/16 04:55 Lab Results: I have reviewed the past 24 hour labs
[2016-07-27] MEDS: INSULIN REGULAR 100 UNIT/ML SUBCUT SCH ×2 (09:36→12:22)
[2016-07-27] MEDS: CITALOPRAM 20 MG TABLET PO SCH (09:44)
[2016-07-27] MEDS: PANTOPRAZOLE 40 MG TABLET PO SCH (09:45)
[2016-07-27] MEDS: TRIAMTERENE/HCTZ 75-50 MG TABLET PO SCH (09:45)
[2016-07-27] MEDS: MULTIVITAMIN (CENTRUM) TABLET PO SCH (09:45)
[2016-07-27] MEDS: ASPIRIN EC 81 MG TABLET PO SCH (09:45)
[2016-07-27] MEDS: DONEPEZIL 10 MG TABLET PO SCH (09:45)
--- NOTE | 2016-07-27 10:44 | Pain Management Progress Note ---
Assessment and Plan (1) Chronic pain syndrome Status: Acute Assessment and plan: Hyperpathia improved with hs low dose Lyrica, Anastozole is being discontinured as possible factor. She should improve daily, can always titrate Lyrica. Will get PT to see her and family needs to decide on rehab bed vs home health care. Current Visit: Yes Pain - Subjective Interval history: Better up in chair Exam - Constitutional Vitals: Period Temp Pulse Resp BP Sys/Christopher Pulse Ox Last 24 Hr 96.1 F-97.7 F 60-81 18-20 112-146/54-65 94-97 Results - Labs CBC & BMP: 07/27/16 04:55 07/27/16 04:55
--- NOTE | 2016-07-27 15:47 | Discharge Summary ---
Laurie Olivier April RN, am scribing for, and in the presence of, Oral Ross MD 15 :33. Hospital Course - Hospital Course Hospital Course: Seasoner Hand: Dr. Montejo Ms. 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 Ms. Flowers is anxious and in pain currently so much of her history and information her symptoms is taken from her daughter and [id number]. She has a history of tachycardia, paroxysmal atrial fibrillation, dyslipidemia, hypothyroidism, breast cancer, NIDDM, hypertension, and COPD. Echo done July with ejection fraction 65%. Echo done July 04, 2016 with ejection fraction 65%.She had dual-chamber pacemaker placed by Dr. Ross July 21, 2016 for documented nonreversible symptomatic bradycardia due to sinus node dysfunction and recurrent presyncope. Other surgeries include bilateral mastectomy, thyroidectomy, bilateral cataract, tonsillectomy, right shoulder, bilateral knee replacement, and colectomy. Family history includes brother with CVA and hypertension in parents siblings and son with cancer. She reports she is a lifetime non-smoker. She lives with her daughter and ambulates with the assistance of a walker and two people. She reports having chest pressure since she was discharged last week that got worse and she presented to the emergency department on Monday for further evaluation. She continued to complain of chest heaviness and shortness of breath after admission. She has generalized pain all over and cries out whenever she is touched, she reports this has been going on for about a year. Pacemaker was interrogated this admission and showed the pacemaker is functioning appropriately. Chest x-ray was unremarkable. Echocardiogram done this admission with ejection fraction of 55%. She was seen in consultation by Dr. George for pain management and Dr. Jackson who is her regular oncologist. Dr. Jackson felt the anastrozole could be contributing to her pain so he discontinued this. She will keep her previously scheduled appointment to see him. Dr. George start her on Lyrica. He hopes this along with stopping anastrozole will help with her pain. The patient is very weak and debilitated. Ms. Flowers is seen resting in bed in no acute distress. She is not complaining of the chest pain she was having on admission. She was able to get up with the help of physical therapy this morning. Signs been stable, blood pressure this morning 120/68. We performed a one-week pacemaker wound check, which is healing fine and the pacemaker interrogation. We asked [employer] to come by and teach her about the remote monitor. We will remove the sling, she is severely debilitated from her generalized pain and is not using her arm a lot. It is felt she has reached maximum benefit from hospitalization. It was discussed with family about patient possibly going to swing bed or a rehab facility. The family would like for the patient to be discharged home with physical therapy to be done in the home. Case management will set this up. 35 minutes spent on discharge. - Time spent with patient Time with patient DS: Greater than 30 minutes Diagnosis - Discharge Diagnosis (1) Atypical chest pain Status: Resolved (2) Status post placement of cardiac pacemaker Status: Chronic (3) Diabetes mellitus Status: Chronic (4) HTN (hypertension) Status: Chronic Specialty Discharge - Follow Up or Referrals Follow up with: Gracie Montejo DO [Physician] - (3 months with CBC BMP mag EKG) Discharge Plan - Discharge Data Disposition: Disch To Home/Self Care Condition at Discharge: Stable Discharge Diet: heart healthy Activity: increase activity as tolerated Hygiene: no restrictions, other Weight Bearing at Discharge: weight bear as tolerated Contact your physician if you experience:: fever over 101, Difficulty voiding, Redness or swelling, Nausea/Vomiting, Shortness of breath, Bleeding, pain uncontrolled by pain medications - Discharge Medications New Pregabalin [Lyrica] 25 mg PO DAILY #30 capsule Continue Triamterene/Hctz 75-50 Tab [Maxzide 75-50] 1 tablet PO QAM Levothyroxine Tab [Synthroid Tab] 175 mcg PO DAILY Latanoprost [Latanoprost 0.005 % Oph Soln] 1 drop BOTH EYES BEDTIME Temazepam [Restoril] 15 mg PO BEDTIME PRN PRN Reason: Sleep Citalopram [CeleXA] 40 mg PO DAILY Aspirin [Ecotrin] 81 mg PO DAILY ALPRAZolam [Alprazolam] 0.5 mg PO 1200 Donepezil [Aricept] 10 mg PO DAILY Meclizine [Antivert] 25 mg PO TID PRN PRN Reason: Dizziness Calcium (Citr)/Vit D 200-125 [Citracal + D] 1 tablet PO BEDTIME Ondansetron Odt Tab [Zofran Odt] 4 mg SL Q8HR PRN PRN Reason: Nausea Sodium Bicarbonate/Sod Citrat [Vivi-[place] Heartburn Tab Eff] 1 tablet PO DIRECTED PRN PRN Reason: gas and heartburn glipiZIDE [Glipizide ER] 2.5 mg PO DAILY Cyanocobalamin (Vitamin B-12) [Vitamin B12] 2,500 mcg PO BID Ykjck-V-Xgonfwjteiovb [Beano] 2 tablet PO TID W/MEALS PRN PRN Reason: Gas Fluticasone 50 Mcg Nasal [place] [Flonase Nasal [place]] 1 spray BOTH NARES BID PRN PRN Reason: Nasal Congestion Oxycodone HCl/Acetaminophen [Oxycodone-Acetaminophen 10-325] 1 tablet PO BEDTIME Lidocaine HCl [Lidocaine 3% Cream] See Protocol TOP DIRECTED PRN PRN Reason: joint pain Cheratussin Ac Syp 2 teaspoon PO QID PRN PRN Reason: Cough Oxycodone HCl/Acetaminophen [Oxycodone-Acetaminophen 10-325] 0.5 tablet PO 1200 Multivitamin [One Daily Multivitamin] 1 each PO DAILY Discontinued Anastrozole 1 mg PO DAILY - Follow Up or Referral Follow Up: Gracie Montejo DO [Physician] - (3 months with CBC BMP mag EKG) - Forms/Instructions Exam - Constitutional Vitals: Period Temp Pulse Resp BP Sys/Christopher Pulse Ox Last 24 Hr 96.1 F-97.7 F 64-81 18-20 112-146/54-68 94-97 Exam: General appearance: no acute distress, morbidly obese - Head Head exam: Absent: hematoma, laceration - Respiratory Respiratory exam: Present: chest wall tenderness, rales, other (Oxygen via nasal cannula). Absent: accessory muscle use - Cardiovascular Cardiovascular exam: Present: regular rate and rhythm, systolic murmur - GI/Abdominal GI/Abdominal exam: Present: normal bowel sounds, tenderness, soft - Extremities Exam Extremities exam: Present: edema - Neurological Exam Neurological exam: Present: alert, oriented X3 - Psychiatric Psychiatric exam: Present: anxious - Skin Skin exam: Present: warm, dry Discharge Results Procedures and tests throughout hospitalization: Pending Orders 07/28/16 04:00 BMP w/ Mg [Basic Metabolic Panel w/Mg] IN AM CBC [Comp Blood Count Auto Diff] IN AM 07/29/16 04:00 BMP w/ Mg [Basic Metabolic Panel w/Mg] IN AM CBC [Comp Blood Count Auto Diff] IN AM Labs on day of discharge: Labs from last 24 hours 07/27/16 07/27/16 07/27/16 12:00 06:39 04:55 WBC RBC Hgb Hct MCV MCH MCHC RDW Plt Count MPV Neut % (Auto) Lymph % (Auto) [place] % (Auto) Eos % (Auto) Baso % (Auto) Neut # (Auto) Lymph # (Auto) [place] # (Auto) Eos # (Auto) Baso # (Auto) Immature Gran % Nucleated RBC % Immature Gran # Nucleated RBCs # Sodium 141 Potassium 4.2 Chloride 104 Carbon Dioxide 29 Anion Gap 12.2 BUN 29 H Creatinine 1.60 H GFR Calculation 33 BUN/Creatinine Ratio 18.00 Glucose 99 POC Glucose 156 H 112 H Calculated Osmolality 286.3 Calcium 8.4 L Magnesium 2.4 Total Creatine Kinase C-Reactive Protein Vitamin B12 Free T4 TSH 3rd Generation 07/27/16 07/26/16 07/26/16 04:55 23:17 17:30 WBC 5.8 RBC 3.65 L Hgb 11.0 L Hct 34.0 L MCV 93.2 MCH 30 MCHC 32.4 RDW 13.2 Plt Count 211 MPV 10.9 Neut % (Auto) 57.5 Lymph % (Auto) 25.1 [place] % (Auto) 10.5 Eos % (Auto) 5.7 Baso % (Auto) 0.7 Neut # (Auto) 3.3 Lymph # (Auto) 1.5 [place] # (Auto) 0.6 Eos # (Auto) 0.3 Baso # (Auto) 0.0 Immature Gran % 0.5 Nucleated RBC % 0.0 Immature Gran # 0.03 Nucleated RBCs # 0.00 Sodium Potassium Chloride Carbon Dioxide Anion Gap BUN Creatinine GFR Calculation BUN/Creatinine Ratio Glucose POC Glucose 210 H 157 H Calculated Osmolality Calcium Magnesium Total Creatine Kinase C-Reactive Protein Vitamin B12 Free T4 TSH 3rd Generation 07/26/16 07/26/16 07/26/16 17:19 17:19 17:18 WBC RBC Hgb Hct MCV MCH MCHC RDW Plt Count MPV Neut % (Auto) Lymph % (Auto) [place] % (Auto) Eos % (Auto) Baso % (Auto) Neut # (Auto) Lymph # (Auto) [place] # (Auto) Eos # (Auto) Baso # (Auto) Immature Gran % Nucleated RBC % Immature Gran # Nucleated RBCs # Sodium Potassium Chloride Carbon Dioxide Anion Gap BUN Creatinine GFR Calculation BUN/Creatinine Ratio Glucose POC Glucose Calculated Osmolality Calcium Magnesium Total Creatine Kinase C-Reactive Protein 1.08 H Vitamin B12 > 2000 H Free T4 1.02 TSH 3rd Generation 11.300 H 07/26/16 17:18 WBC RBC Hgb Hct MCV MCH MCHC RDW Plt Count MPV Neut % (Auto) Lymph % (Auto) [place] % (Auto) Eos % (Auto) Baso % (Auto) Neut # (Auto) Lymph # (Auto) [place] # (Auto) Eos # (Auto) Baso # (Auto) Immature Gran % Nucleated RBC % Immature Gran # Nucleated RBCs # Sodium Potassium Chloride Carbon Dioxide Anion Gap BUN Creatinine GFR Calculation BUN/Creatinine Ratio Glucose POC Glucose Calculated Osmolality Calcium Magnesium Total Creatine Kinase 28 C-Reactive Protein Vitamin B12 Free T4 TSH 3rd Generation - Imaging and Cardiology Procedure: Chest x-ray: report reviewed by me DS: Provider Consults: 07/26/16 10:15 Consult to Occupational Therapy [CONS] Routine Reason for Occupational Therapy: Evaluate and Treat Consult to Physical Therapy [CONS] Routine Reason for Physical Therapy: Evaluate and Treat Consult to Physician [CONS] Routine Comment: chronic pain 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 Provider: Vj George Consult to Specialist Group: Pain Management Person Notified: SIGIFREDO Date Notified: 07/26/16 Time Notified: 11:05 07/26/16 17:53 Consult to Physician [CONS] Routine Comment: Consulting Provider: Danny Jackson When should Consulting Provider be notified: In am 07/27/16 10:44 Consult to Physical Therapy [CONS] Routine Reason for Physical Therapy: Other Start Therapy: Today Consult Comment: assess for home care and strengthening, ADL's Expected date of discharge: 07/27/16 Vandana Olivier Attila, MD, personally performed the services described in this documentation, ascribed by Ninoska Sullivan RN in my presence, and it is both accurate and complete [id number] .
[2016-07-27 16:48] VITALS: BP 129/70
== END 2016-07-27 17:08 | disposition home or self-care (01) | DRG 313 ==
LOC: N.ED 18:07 → N.EDINP 22:33 → N.TELES 22:52
PROVIDERS: ADMIT Internal Medicine Clinical Cardiac Electrophysiology; ATTEND Internal Medicine Clinical Cardiac Electrophysiology

== ENCOUNTER 2016-09-21 11:16 | Observation (INO) ==
[2016-09-21] MEDS ORDERED: BISACODYL 5 MG TABLET PO PRN (13:07)
[2016-09-21] MEDS ORDERED: MORPHINE 2 MG/1 ML SYRINGE IV PRN (13:07)
[2016-09-21] MEDS ORDERED: ACETAMINOPHEN 325 MG TABLET PO PRN (13:07)
[2016-09-21] MEDS ORDERED: MAGNESIUM SULF RIDER 2 GM in PREMIX 1 EACH IV PRN (13:07)
[2016-09-21] MEDS ORDERED: DOCUSATE SODIUM 100 MG CAPSULE PO PRN (13:07)
[2016-09-21] MEDS ORDERED: MAGNESIUM SULF RIDER 4 GM in PREMIX 1 EACH IV PRN (13:07)
[2016-09-21] MEDS ORDERED: ONDANSETRON 4 MG/2 ML VIAL IV PRN (13:07)
[2016-09-21] MEDS ORDERED: ZALEPLON 5 MG CAPSULE PO PRN (13:07)
--- NOTE | 2016-09-21 13:32 | EKG Report ---
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
[2016-09-21 13:35] LABS: Basophils % 0.5 % (0.0-0.8); Eosinophils # 0.2 10*3/uL (0.0-0.87); Eosinophils % 2.8 % (0.00-10.9); Hematocrit 37.3 VOL% (35.7-47.0); Hemoglobin 12.4 GM/DL (12.0-16.0); Immature Granulocytes % 0.5 %; Immature Granulocytes Absolute 0.04 #; Lymphocytes # 1.3 10*3/uL (1.4-4.0); Lymphocytes % 16.2 % (21.3-54.2); Mean Corpuscular HGB Conc 33.2 GM/DL (32-36); Mean Corpuscular Hemoglobin 31 PG (27-34); Mean Corpuscular Volume 92.1 FL (87-102); Mean Platelet Volume 9.9 FL (9.6-12.0); Monocytes # 0.7 10*3/uL (0.11-0.8); Monocytes % 9.3 % (1.7-12.7); Neutrophils # 5.5 10*3/uL (1.4-7.4); Neutrophils % 70.7 % (38.7-73.9); Platelet Count 194 T/CUMM (130-400); Red Blood Count 4.05 MC/CUMM (3.8-5.5); Red Cell Distribution Width 13.2 % (9.3-17.3); White Blood Count 7.8 T/CUMM (4-12)
[2016-09-21 14:06] LABS: Alanine Aminotransferase 21 U/L (13-56); Albumin 3.2 G/DL (3.4-5.0); Alkaline Phosphatase 75 U/L (45-117); Aspartate Amino Transferase 16 U/L (0-37); Bilirubin,Total < 0.39 MG/DL (0.2-1.0); Blood Urea Nitrogen 32 MG/DL (7-18); Calcium 8.8 MG/DL (8.5-10.1); Glucose 104 MG/DL (74-106); Osmolality,Calculated 283.5 MOS/KG (273-304); Potassium 3.9 MMOL/L (3.5-5.1); Sodium 139 MMOL/L (136-145); Total Protein 6.2 G/DL (6.4-8.3); Troponin I Only < 0.015 NG/ML (0.00-0.045)
[2016-09-21] MEDS: PANTOPRAZOLE 40 MG TABLET PO SCH (14:14)
[2016-09-21] MEDS: SODIUM CHLORIDE 0.45% 1,000 ML IV SCH ×2 (14:15→20:49)
--- NOTE | 2016-09-21 15:34 | CT Report ---
CT head/brain wo con Indication: Syncope Comparison: CT brain dated February 19, 2015 Technique: Multiple axial tomographic images of the brain were obtained without the use of intravenous contrast. Findings: Midline structures are nondisplaced. There is no convincing evidence of acute intracranial hemorrhage . No convincing evidence of hydrocephalus. Mild global volume loss present. Mild periventricular and subcortical hypoattenuation noted which is nonspecific but consistent with chronic microvascular ischemic change. Demyelinating process and vasculitis less likely considerations. The visualized paranasal sinuses and bilateral mastoid air cells are essentially clear. Atherosclerotic calcifications demonstrated. IMPRESSION: No acute intracranial abnormality demonstrated. The CT exam was performed using one or more of the following dose reduction techniques: Automated exposure control, adjustment of the mA and/or kV according to patient size, or use of iterative reconstruction technique. PROCEDURE INTERPRETED AT [facility] DEPARTMENT OF RADIOLOGY Final Report Signed by: Dr Julián Duque
--- NOTE | 2016-09-21 15:49 | Ultrasound Report ---
US carotid duplex BI Indication: Syncope. Comparison: None. Technique: Multiple longitudinal and transverse real-time sonographic images of the bilateral carotid arterial systems are obtained with grayscale, spectral, and color Doppler analysis. Findings: Peak systolic velocities within the right CCA, proximal ICA, and distal ICA are 66, 59, and 69 cm/s respectively. Peak systolic velocities within the left CCA, proximal ICA, and distal ICA are 52, 68, and 91 cm/s respectively. ICA/CCA ratios on the right and left are 1.0 and 1.8 respectively. Antegrade flow demonstrated within the bilateral vertebral arteries. Grayscale imaging demonstrates minimal bilateral atherosclerotic plaque. IMPRESSION: No convincing sonographic evidence of significant (50% or greater) narrowing of either cervical internal carotid artery. Indirect NASCET criteria utilized. PROCEDURE INTERPRETED AT [facility] DEPARTMENT OF RADIOLOGY Final Report Signed by: Dr Julián Duque
--- NOTE | 2016-09-21 16:05 | XRay Report ---
XR chest 1V portable Indication: SOB Comparison: Chest x-ray dated July 26, 2016 Technique: Single frontal view of the chest. Findings: Continued mild cardiac megaly. Pacemaker apparatus again demonstrated. Chronic change of the lungs without focal consolidation, pleural effusion, or pneumothorax. Continued mild elevation of left hemidiaphragm. Visualized osseous and surrounding soft tissue structures appear grossly unchanged. IMPRESSION: Stable chest x-ray without acute cardiopulmonary process demonstrated. PROCEDURE INTERPRETED AT [facility] DEPARTMENT OF RADIOLOGY Final Report Signed by: Dr Julián Duque
[2016-09-21 16:29] LABS: Troponin I Only < 0.015 NG/ML (0.00-0.045)
[2016-09-21 22:09] LABS: Troponin I Only < 0.015 NG/ML (0.00-0.045)
[2016-09-21 22:32] LABS: Apearance,Urine CLEAR (Clear); Bilirubin,Urine Negative (Negative); Blood, Urine Moderate mg/dL (Negative); Glucose,Urine (UA) Negative (Negative); Hyaline Casts,Urine 3 /LPF (0-3); Ketones,Urine Negative (Negative); Nitrite,Urine Negative (Negative); Protein,Urine Negative; RBC,Urine 22 /HPF (0-4); Squamous Epithelial Cell,Urine Occasional /HPF (0-10); Urine Color Yellow (Yellow); Urine Specific Gravity 1.008 (1.001-1.035); Urine Urobilinogen < 2.0 EU/DL (0.2-1.0); WBC,Urine 3 /HPF (0-6)
[2016-09-22] MEDS: SODIUM CHLORIDE 0.45% 1,000 ML IV SCH ×2 (04:29→13:11)
[2016-09-22 05:26] LABS: Basophils % 0.5 % (0.0-0.8); Eosinophils # 0.2 10*3/uL (0.0-0.87); Eosinophils % 2.7 % (0.00-10.9); Hematocrit 34.5 VOL% (35.7-47.0); Hemoglobin 11.6 GM/DL (12.0-16.0); Immature Granulocytes % 0.5 %; Immature Granulocytes Absolute 0.04 #; Lymphocytes # 1.7 10*3/uL (1.4-4.0); Lymphocytes % 19.3 % (21.3-54.2); Mean Corpuscular HGB Conc 33.6 GM/DL (32-36); Mean Corpuscular Hemoglobin 30 PG (27-34); Mean Corpuscular Volume 90.6 FL (87-102); Monocytes # 0.6 10*3/uL (0.11-0.8); Monocytes % 7.5 % (1.7-12.7); Neutrophils % 69.5 % (38.7-73.9); Platelet Count 194 T/CUMM (130-400); Red Blood Count 3.81 MC/CUMM (3.8-5.5); Red Cell Distribution Width 13.3 % (9.3-17.3); White Blood Count 8.6 T/CUMM (4-12)
[2016-09-22 06:03] LABS: Alanine Aminotransferase 20 U/L (13-56); Albumin 2.8 G/DL (3.4-5.0); Alkaline Phosphatase 74 U/L (45-117); Aspartate Amino Transferase 16 U/L (0-37); Bilirubin,Total < 0.39 MG/DL (0.2-1.0); Blood Urea Nitrogen 27 MG/DL (7-18); Calcium 7.8 MG/DL (8.5-10.1); Cholesterol 186 MG/DL (50-200); Glucose 150 MG/DL (74-106); HDL Cholesterol 49 MG/DL (40-60); Osmolality,Calculated 282.7 MOS/KG (273-304); Potassium 4.2 MMOL/L (3.5-5.1); Sodium 138 MMOL/L (136-145); Total Protein 5.8 G/DL (6.4-8.3); Triglycerides 120 MG/DL (2-150)
--- NOTE | 2016-09-22 06:25 | EKG Report ---
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
--- NOTE | 2016-09-22 06:26 | EKG Report ---
Stationary ECG Study 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
[2016-09-22 07:33] LABS: Troponin I Only < 0.015 NG/ML (0.00-0.045)
[2016-09-22] MEDS: PANTOPRAZOLE 40 MG TABLET PO SCH (08:40)
[2016-09-22] MEDS ORDERED: [UNRECOGNIZED DRUG - OTHER] PO PRN (09:41)
[2016-09-22] MEDS ORDERED: MECLIZINE 25 MG TABLET PO PRN (09:41)
[2016-09-22] MEDS ORDERED: ALPHA D GALACTOSIDASE PO PRN (09:41)
[2016-09-22] MEDS ORDERED: FLUTICASONE 50 MCG NASAL SPRAY 16 GM BOTTLE BOTH NARES PRN (09:41)
[2016-09-22] MEDS ORDERED: SODIUM BICARBONATE PO PRN (09:41)
[2016-09-22] MEDS ORDERED: MULTIVITAMIN (CENTRUM) TABLET PO SCH (09:45)
[2016-09-22] MEDS ORDERED: DONEPEZIL 10 MG TABLET PO SCH (10:00)
[2016-09-22] MEDS ORDERED: TRIAMTERENE/HCTZ 75-50 MG TABLET PO SCH (10:00)
[2016-09-22] MEDS ORDERED: ASPIRIN EC 81 MG TABLET PO SCH (10:00)
[2016-09-22] MEDS ORDERED: ALPRAZolam 0.5 MG TABLET PO SCH (12:00)
[2016-09-22] MEDS ORDERED: oxyCODONE/ACETAMINOPHEN 5-325 MG TABLET PO SCH ×2 (12:00→21:00)
[2016-09-22 16:25] VITALS: BP 156/68
--- NOTE | 2016-09-22 16:40 | Neurology Consult Note ---
History of Present Illness History of present illness: Ms. Flowers 83-year-old female with history of tachycardia, paroxysmal atrial fibrillation, dyslipidemia, hypothyroidism, breast cancer, NIDDM, hypertension, and COPD. Echo done July 04, 2016 with ejection fraction 65%. She had dual- chamber pacemaker placed by Dr. Ross July 21, 2016 for documented nonreversible symptomatic bradycardia due to sinus node dysfunction and recurrent presyncope. Other surgeries include bilateral mastectomy, thyroidectomy, bilateral cataract, tonsillectomy, right shoulder, bilateral knee replacement, and colectomy. She had a CT of the chest September 14 of this year that suggested bronchiectasis, she is currently on antibiotics for this. She lives with her daughter and ambulates with the assistance of a walker and two people. She saw Dr. Montejo in the office September 21 for complaints of having chest pain and near syncope episodes since before she had a pacemaker. Pacemaker was interrogated at Dr. Montejo's office and was found to be working appropriately. She was directly admitted for observation. Daughter reported that she would just developed near syncopal episode. She never go out completely. She would just feel like that she was on pass out but after putting cold rags on her face she would come down. Never had any generalized tonic-clonic activity. No tongue biting or urinary incontinence reported Home Medications Medication Instructions Recorded Confirmed Type Aspirin [Ecotrin] 81 mg PO DAILY 02/19/15 09/21/16 History Citalopram [CeleXA] 40 mg PO DAILY 02/19/15 09/21/16 History Latanoprost [Latanoprost 0.005 % 1 drop BOTH EYES BEDTIME 02/19/15 09/21/16 History Oph Soln] Levothyroxine Tab [Synthroid Tab] 175 mcg PO DAILY@0700 02/19/15 09/21/16 History Temazepam [Restoril] 15 mg PO BEDTIME PRN 02/19/15 09/21/16 History Triamterene/Hctz 75-50 Tab 1 tablet PO QAM 02/19/15 09/21/16 History [Maxzide 75-50] ALPRAZolam [Alprazolam] 0.5 mg PO 1200 09/10/15 09/21/16 History Calcium (Citr)/Vit D 200-125 1 tablet PO BEDTIME 09/10/15 09/21/16 History [Citracal + D] Donepezil [Aricept] 10 mg PO DAILY 09/10/15 09/21/16 History Meclizine [Antivert] 25 mg PO TID PRN 09/10/15 09/21/16 History Tzady-C-Sbewidjadftuc [Beano] 2 tablet PO TID W/MEALS PRN 07/21/16 09/21/16 History Fluticasone 50 Mcg Nasal [place] 1 spray BOTH NARES BID PRN 07/21/16 09/21/16 History [Flonase Nasal [place]] Lidocaine HCl [Lidocaine 3% Cream] See Protocol TOP DIRECTED PRN 07/21/16 History Ondansetron Odt Tab [Zofran Odt] 4 mg SL Q8HR PRN 07/21/16 09/21/16 History Oxycodone HCl/Acetaminophen 0.5 tablet PO 1200 07/21/16 09/21/16 History [Oxycodone-Acetaminophen 10-325] Oxycodone HCl/Acetaminophen 1 tablet PO BEDTIME 07/21/16 09/21/16 History [Oxycodone-Acetaminophen 10-325] Sodium Bicarbonate/Sod Citrat 1 tablet PO DIRECTED PRN 07/21/16 09/21/16 History [Vivi-[place] Heartburn Tab Eff] Cyanocobalamin (Vitamin B-12) 2,500 mcg PO BID 07/25/16 09/21/16 History [Vitamin B12] Multivitamin [One Daily 1 each PO DAILY 07/25/16 09/21/16 History Multivitamin] glipiZIDE [Glipizide ER] 2.5 mg PO DAILY 07/25/16 09/21/16 History Pregabalin [Lyrica] 25 mg PO DAILY #30 capsule 07/27/16 09/21/16 Rx Azithromycin Tab [Zithromax Tab] 250 mg PO MOWEFR 09/21/16 09/21/16 History Allergies Allergy/AdvReac Type Severity Reaction Status Date / Time latex Allergy Mild Rash/Tears Verified 09/10/15 15:57 Skin metronidazole [From Flagyl] Allergy Unknown/Unable Verified 09/10/15 15:57 to obtain sulfamethoxazole AdvReac Intermediate Severe Verified 09/10/15 15:57 [From Bactrim] Diarrhea/Nausea trimethoprim [From Bactrim] AdvReac Intermediate Severe Verified 09/10/15 15:57 Diarrhea/Nausea 12 point system: reviewed and no additional remarkable complaints except as stated Medical,Surgical,& Family Hx - Medical History Cardio: History of: Cardiac Dysrhythmia (Paroxysmal atrial fibrillation), Hypertension, Pacemaker, Cardiovascular Problems (A fib) Psychological: History of: Anxiety Disorders Neurology: No history of: Seizures HEENT: History of: Ear Problem (Ear Popping, Mild Loss), Eye Problem (Cataracts ; Glasses), Glaucoma Endocrine: History of: Diabetes Mellitus (NIDDM), Dyslipidemia (Off Cholesterol meds), Thyroid Disorder Respiratory: History of: COPD, Respiratory Problems (Dr. Daniels; Flu Vac Current [id number]) No history of: Pneumonia (Pneum Vac 12/25/14) Gastrointestinal: History of: Gastrointestinal Cancer (Colon), GI Problems (Hx Ulcers) Musculoskeletal: History of: Musculoskeletal Problems (OA; Lt shoulder Pain) Hematology: History of: Bleeding Problems (Transfusion with Colon Surgery) No history of: Blood Transfusion Reaction Reproductive: History of: Breast Cancer Other: History of: Anesthesia Reactions (Able to feel everything that happened during a colon scope), Cancer (Colon; Breast) No history of: Skin Problems - Surgical History HEENT Surgeries: Surgical HX of: Eye Surgery (Bilateral cataract), Thyroid Surgery (Total Thyroidectomy), Tonsilectomy & Adenoidectomy (194) Abdominal Surgeries: Surgical HX of: Abdominal Surgery (Colectomy), Colonoscopy (Dr. Franco) Reproductive Surgeries: Surgical HX of;: Breast Surgery (Bilateral mastectomy), Gynecologic Surgery (RT/LT Mastectomy) Orthopedic Surgeries: Surgical HX of;: Orthopedic Surgery (Right shoulder Muscle Surgery;Pinning 02/2015 Lt Arm), Total Knee Replacement (RT/LT) - Family History Family History: Reports;: Family Cancer (Parents siblings son), Family Diabetes , Family Heart Disease, Family Hypertension (Brother), Family Stroke (Brother) - Social History Smoking Status: Never smoker Frequency of Alcohol Use: None Type of Drug Use: None Exam - Constitutional Vitals: Period Temp Pulse Resp BP Sys/Christopher Pulse Ox Last 24 Hr 96.8 F-97.9 F 58-83 16-18 135-169/60-96 91-98 Exam: GENERAL: Patient is in no acute distress. NECK: Neck is supple. There is no JVD. No carotid bruits present. No thyroid masses. CVS: First and second heart sounds are normal. There is no S3 present. Regular rate and rhythm. RESPIRATORY: Lungs are clear to auscultation without any rales or rhonchi. ABDOMEN: Soft and non-tender. Bowel sounds are present. There is no hepatosplenomegaly. EXT: There is 2+ palpable edema. Peripheral pulses are present. Skin: No rashes Central Nervous system: General: Alert, awake and Oriented x 3 Speech: Fluent Comprehension: Intact and normal Facial expressions: Normal Cranial Nerves: CN1/Olfactory: Normal CN II/ Optic: Normal, Visual Pandya unreliable CN III, and : TYALOR & EOMI CN V: Normal & intact CN VII: face is symmetric CNVIII: Normal CN XI/X/XI/XII: Intact and Normal Motor: Bulk and Tone is normal. Strength in the right 4/5 Strength in the left 4/5 Sensory: Decreased for all the modalities of PP, LT and temp sense Reflexes: 1+ and symmetrical Cerebellar function: Slow finger to nose and heel to campuzano testing. Toes: Equivocal Gait: Not tested at this time Results - Labs CBC & BMP: 09/22/16 04:13 09/22/16 04:13 Assessment and Plan (1) Near syncope Status: Acute Assessment and plan: This is likely represents either vasovagal phenomena versus cardiac etiology. No evidence of TIAs, stroke, epilepsy. Simple partial seizure would be under differential though. Will Go ahead and do EEG Thank you for the consult Current Visit: Yes
--- NOTE | 2016-09-22 16:45 | Cardiology History & Physical ---
Assessment and Plan (1) Palpitation Status: Acute Assessment and plan: 1. 89-year-old WF with history of paroxysmal atrial fibrillation with tachybradycardia syndrome status post dual-chamber pacemaker placement by Dr. Nicholson July 21, 2016, admitted from clinic by Dr. Montejo yesterday for recurrent palpitations, episodes of chest pain lasting seconds to a few minutes (very atypical), and another episode of presyncope (similar to what she has had for a long time prior to pacemaker placement) 2. Minimal carotid disease noted this admission 3. Telemetry showed no dysrhythmia with frequent atrial pacing 4. Tilt negative on with a static blood pressure/heart rate 5. Neurology is evaluated; please see note. 6. Recommend trial of PPI/H2 binu 7. Episodes occur sitting down as well as when she standing up. Will schedule close follow-up with Dr. Quiroz Current Visit: Yes (2) HTN (hypertension) Status: Chronic Current Visit: Yes (3) Tachy-sommer syndrome Status: Acute Current Visit: No (4) PAF (paroxysmal atrial fibrillation) Status: Chronic Current Visit: No (5) Chest pain Status: Acute Current Visit: Yes (6) Near syncope Status: Acute Current Visit: Yes History of Present Illness Chief complaint: palpitations History of present illness: Patient Name: Negar Flowers Date of : 1925 Patient Status: Observation Attending Provider: Alfredo Gonzalez Date: 09/22/16 09:30 Initialization Date: 09/22/16 09:30 Laurie Olivier April, RN, am scribing for, and in the presence of, 09:38. Assessment and Plan (1) Chest pain Status: Acute Current Visit: Yes (2) Diabetes mellitus Status: Chronic Current Visit: Yes (3) HTN (hypertension) Status: Chronic Current Visit: Yes (4) Status post placement of cardiac pacemaker Status: Chronic Current Visit: Yes Cardiology - PN: Subj Interval history: Structural Analysis Engineer: Dr. Montejo SUMMARY: Ms. Flowers 83-year-old female who is routinely followed by Dr. Montejo. She has a history of tachycardia, paroxysmal atrial fibrillation, dyslipidemia, hypothyroidism, breast cancer, NIDDM, hypertension, and COPD. Echo done July with ejection fraction 65%. Echo done July 04, 2016 with ejection fraction 65%.She had dual-chamber pacemaker placed by Dr. Ross July 21, 2016 for documented nonreversible symptomatic bradycardia due to sinus node dysfunction and recurrent presyncope. Other surgeries include bilateral mastectomy, thyroidectomy, bilateral cataract, tonsillectomy, right shoulder, bilateral knee replacement, and colectomy. She had a CT of the chest September 14 of this year that suggested bronchiectasis, she is currently on antibiotics for this. Family history includes brother with CVA and hypertension in parents siblings and son with cancer. She reports she is a lifetime non-smoker. She lives with her daughter and ambulates with the assistance of a walker and two people. She saw Dr. Montejo in the office September 21 for complaints of having chest pain and near syncope episodes since before she had a pacemaker. Pacemaker was interrogated at Dr. Montejo's office and was found to be working appropriately. She was directly admitted for observation. September 22, 2016: Ms. Flowers is seen sitting up in chair this morning. She reports having some vague chest pain, but states it is not as bad as it has been. She is short of breath at this point, but states she just finished with a bath. She says she was not short of breath before this activity. She says she continues to occasionally have episodes where she feels like she might pass out. Her blood pressure is elevated this morning at 169/96. Visual change with orthostatic vital signs. Labs this morning are unremarkable. EKG this morning showed sinus rhythm first degree AV block, heart rate of 63. CT of the head showed no acute abnormality. Carotid ultrasound showed no evidence of significant narrowing of either cervical internal carotid artery. Awaiting neurology consult. Exam (Progress Note) - Constitutional Vitals: Period Temp Pulse Resp BP Sys/Christopher Pulse Ox Last 24 Hr 96.8 F-98.2 F 59-83 16-18 135-180/60-96 91-100 General appearance: no acute distress, morbidly obese - Head Head exam: Absent: abrasion, hematoma - Eye Eye exam: Absent: periorbital swelling, laceration to eyelids - Respiratory Respiratory exam: Absent: accessory muscle use, chest wall tenderness - Cardiovascular Cardiovascular exam: Present: regular rate and rhythm. Absent: rubs - GI/Abdominal GI/Abdominal exam: Present: normal bowel sounds, soft. Absent: distended, tenderness - Extremities Exam Extremities exam: Present: edema (1+ bilateral lower extremities) - Neurological Exam Neurological exam: Present: alert, oriented X3 - Psychiatric Psychiatric exam: Present: normal affect, normal mood - Skin Skin exam: Present: warm, dry Result/EKG - Labs CBC & BMP: 09/22/16 04:13 09/22/16 04:13 Lab Results: I have reviewed the past 24 hour labs Labs: Laboratory Results - last 24 hr 09/21/16 09/21/16 09/21/16 13:27 13:27 13:27 WBC 7.8 RBC 4.05 Hgb 12.4 Hct 37.3 MCV 92.1 MCH 31 MCHC 33.2 RDW 13.2 Plt Count 194 MPV 9.9 Neut % (Auto) 70.7 Lymph % (Auto) 16.2 L Robertson % (Auto) 9.3 Eos % (Auto) 2.8 Baso % (Auto) 0.5 Neut # (Auto) 5.5 Lymph # (Auto) 1.3 L Robertson # (Auto) 0.7 Eos # (Auto) 0.2 Baso # (Auto) 0.0 Immature Gran % 0.5 Nucleated RBC % 0.0 Immature Gran # 0.04 Nucleated RBCs # 0.00 Sodium Potassium Chloride Carbon Dioxide Anion Gap BUN Creatinine GFR Calculation BUN/Creatinine Ratio Glucose POC Glucose Calculated Osmolality Lactic Acid Calcium Total Bilirubin AST ALT Alkaline Phosphatase Total Creatine Kinase 20 L CK-MB (CK-2) 1.0 Troponin I < 0.015 Total Protein Albumin Globulin Albumin/Globulin Ratio Triglycerides Cholesterol LDL Cholesterol VLDL Cholesterol HDL Cholesterol Heart Disease Risk Ratio TSH 3rd Generation 0.864 Urine Color Urine Appearance Urine pH Ur Specific [place] Urine Protein Urine Glucose (UA) Urine Ketones Urine Blood Urine Nitrate Urine Bilirubin Urine Urobilinogen Urine Leukocytes Urine RBC Urine WBC Ur Squamous Epith Cells Hyaline Casts Ur Culture Indicated? 09/21/16 09/21/16 09/21/16 13:27 15:45 15:45 WBC RBC Hgb Hct MCV MCH MCHC RDW Plt Count MPV Neut % (Auto) Lymph % (Auto) Robertson % (Auto) Eos % (Auto) Baso % (Auto) Neut # (Auto) Lymph # (Auto) Robertson # (Auto) Eos # (Auto) Baso # (Auto) Immature Gran % Nucleated RBC % Immature Gran # Nucleated RBCs # Sodium 139 Potassium 3.9 Chloride 100 Carbon Dioxide 34 H Anion Gap 8.9 BUN 32 H Creatinine 1.20 H GFR Calculation 47 BUN/Creatinine Ratio 26.00 H Glucose 104 POC Glucose Calculated Osmolality 283.5 Lactic Acid 1.2 Calcium 8.8 Total Bilirubin < 0.39 AST 16 ALT 21 Alkaline Phosphatase 75 Total Creatine Kinase 21 L CK-MB (CK-2) < 1.0 Troponin I < 0.015 Total Protein 6.2 L Albumin 3.2 L Globulin 3.0 Albumin/Globulin Ratio 1.0 L Triglycerides Cholesterol LDL Cholesterol VLDL Cholesterol HDL Cholesterol Heart Disease Risk Ratio TSH 3rd Generation Urine Color Urine Appearance Urine pH Ur Specific [place] Urine Protein Urine Glucose (UA) Urine Ketones Urine Blood Urine Nitrate Urine Bilirubin Urine Urobilinogen Urine Leukocytes Urine RBC Urine WBC Ur Squamous Epith Cells Hyaline Casts Ur Culture Indicated? 09/21/16 09/21/16 09/21/16 16:58 21:27 22:15 WBC RBC Hgb Hct MCV MCH MCHC RDW Plt Count MPV Neut % (Auto) Lymph % (Auto) Robertson % (Auto) Eos % (Auto) Baso % (Auto) Neut # (Auto) Lymph # (Auto) Robertson # (Auto) Eos # (Auto) Baso # (Auto) Immature Gran % Nucleated RBC % Immature Gran # Nucleated RBCs # Sodium Potassium Chloride Carbon Dioxide Anion Gap BUN Creatinine GFR Calculation BUN/Creatinine Ratio Glucose POC Glucose 121 H Calculated Osmolality Lactic Acid Calcium Total Bilirubin AST ALT Alkaline Phosphatase Total Creatine Kinase 24 L CK-MB (CK-2) 1.5 Troponin I < 0.015 Total Protein Albumin Globulin Albumin/Globulin Ratio Triglycerides Cholesterol LDL Cholesterol VLDL Cholesterol HDL Cholesterol Heart Disease Risk Ratio TSH 3rd Generation Urine Color Yellow Urine Appearance Clear Urine pH 5.0 Ur Specific [place] 1.008 Urine Protein Negative Urine Glucose (UA) Negative Urine Ketones Negative Urine Blood Moderate Urine Nitrate Negative Urine Bilirubin Negative Urine Urobilinogen < 2.0 H Urine Leukocytes Negative Urine RBC 22 Urine WBC 3 Ur Squamous Epith Cells Occasional Hyaline Casts 3 Ur Culture Indicated? Not indicated 09/22/16 09/22/16 09/22/16 04:12 04:13 04:13 WBC 8.6 RBC 3.81 Hgb 11.6 L Hct 34.5 L MCV 90.6 MCH 30 MCHC 33.6 RDW 13.3 Plt Count 194 MPV 11.0 Neut % (Auto) 69.5 Lymph % (Auto) 19.3 L Robertson % (Auto) 7.5 Eos % (Auto) 2.7 Baso % (Auto) 0.5 Neut # (Auto) 6.0 Lymph # (Auto) 1.7 Robertson # (Auto) 0.6 Eos # (Auto) 0.2 Baso # (Auto) 0.0 Immature Gran % 0.5 Nucleated RBC % 0.0 Immature Gran # 0.04 Nucleated RBCs # 0.00 Sodium 138 Potassium 4.2 Chloride 100 Carbon Dioxide 30 Anion Gap 12.2 BUN 27 H Creatinine 1.20 H GFR Calculation 48 BUN/Creatinine Ratio 22.00 H Glucose 150 H POC Glucose Calculated Osmolality 282.7 Lactic Acid Calcium 7.8 L Total Bilirubin < 0.39 AST 16 ALT 20 Alkaline Phosphatase 74 Total Creatine Kinase 30 D CK-MB (CK-2) < 1.0 Troponin I < 0.015 Total Protein 5.8 L Albumin 2.8 L Globulin 3.0 Albumin/Globulin Ratio 0.9 L Triglycerides 120 Cholesterol 186 LDL Cholesterol 113.0 VLDL Cholesterol 24.0 HDL Cholesterol 49 Heart Disease Risk Ratio 3.80 TSH 3rd Generation Urine Color Urine Appearance Urine pH Ur Specific [place] Urine Protein Urine Glucose (UA) Urine Ketones Urine Blood Urine Nitrate Urine Bilirubin Urine Urobilinogen Urine Leukocytes Urine RBC Urine WBC Ur Squamous Epith Cells Hyaline Casts Ur Culture Indicated? - Diagnostic Findings Procedure: Chest x-ray: report reviewed by me - EKG EKG results: interpreted by dc EKG shows: sinus rhythm Home Medications Medication Instructions Recorded Confirmed Type Aspirin [Ecotrin] 81 mg PO DAILY 02/19/15 09/21/16 History Citalopram [CeleXA] 40 mg PO DAILY 02/19/15 09/21/16 History Latanoprost [Latanoprost 0.005 % 1 drop BOTH EYES BEDTIME 02/19/15 09/21/16 History Oph Soln] Levothyroxine Tab [Synthroid Tab] 175 mcg PO DAILY@0700 02/19/15 09/21/16 History Temazepam [Restoril] 15 mg PO BEDTIME PRN 02/19/15 09/21/16 History Triamterene/Hctz 75-50 Tab 1 tablet PO QAM 02/19/15 09/21/16 History [Maxzide 75-50] ALPRAZolam [Alprazolam] 0.5 mg PO 1200 09/10/15 09/21/16 History Calcium (Citr)/Vit D 200-125 1 tablet PO BEDTIME 09/10/15 09/21/16 History [Citracal + D] Donepezil [Aricept] 10 mg PO DAILY 09/10/15 09/21/16 History Meclizine [Antivert] 25 mg PO TID PRN 09/10/15 09/21/16 History [id number] [Beano] 2 tablet PO TID W/MEALS PRN 07/21/16 09/21/16 History Fluticasone 50 Mcg Nasal Moffat 1 spray BOTH NARES BID PRN 07/21/16 09/21/16 History [Flonase Nasal Moffat] Lidocaine HCl [Lidocaine 3% Cream] See Protocol TOP DIRECTED PRN 07/21/16 History Ondansetron Odt Tab [Zofran Odt] 4 mg SL Q8HR PRN 07/21/16 09/21/16 History Oxycodone HCl/Acetaminophen 0.5 tablet PO 1200 07/21/16 09/21/16 History [Oxycodone-Acetaminophen 10-325] Oxycodone HCl/Acetaminophen 1 tablet PO BEDTIME 07/21/16 09/21/16 History [Oxycodone-Acetaminophen 10-325] Sodium Bicarbonate/Sod Citrat 1 tablet PO DIRECTED PRN 07/21/16 09/21/16 History [Vivi-[place] Heartburn Tab Eff] Cyanocobalamin (Vitamin B-12) 2,500 mcg PO BID 07/25/16 09/21/16 History [Vitamin B12] Multivitamin [One Daily 1 each PO DAILY 07/25/16 09/21/16 History Multivitamin] glipiZIDE [Glipizide ER] 2.5 mg PO DAILY 07/25/16 09/21/16 History Pregabalin [Lyrica] 25 mg PO DAILY #30 capsule 07/27/16 09/21/16 Rx Azithromycin Tab [Zithromax Tab] 250 mg PO MOWEFR 09/21/16 09/21/16 History Allergies Allergy/AdvReac Type Severity Reaction Status Date / Time latex Allergy Mild Rash/Tears Verified 09/10/15 15:57 Skin metronidazole [From Flagyl] Allergy Unknown/Unable Verified 09/10/15 15:57 to obtain sulfamethoxazole AdvReac Intermediate Severe Verified 09/10/15 15:57 [From Bactrim] Diarrhea/Nausea trimethoprim [From Bactrim] AdvReac Intermediate Severe Verified 09/10/15 15:57 Diarrhea/Nausea Medical,Surgical,& Family Hx - Medical History Cardio: History of: Cardiac Dysrhythmia (Paroxysmal atrial fibrillation), Hypertension, Pacemaker, Cardiovascular Problems (A fib) Psychological: History of: Anxiety Disorders Neurology: No history of: Seizures HEENT: History of: Ear Problem (Ear Popping, Mild Loss), Eye Problem (Cataracts ; Glasses), Glaucoma Endocrine: History of: Diabetes Mellitus (NIDDM), Dyslipidemia (Off Cholesterol meds), Thyroid Disorder Respiratory: History of: COPD, Respiratory Problems (Dr. Daniels; Flu Vac Current [id number]) No history of: Pneumonia (Pneum Vac 12/25/14) Gastrointestinal: History of: Gastrointestinal Cancer (Colon), GI Problems (Hx Ulcers) Musculoskeletal: History of: Musculoskeletal Problems (OA; Lt shoulder Pain) Hematology: History of: Bleeding Problems (Transfusion with Colon Surgery) No history of: Blood Transfusion Reaction Reproductive: History of: Breast Cancer Other: History of: Anesthesia Reactions (Able to feel everything that happened during a colon scope), Cancer (Colon; Breast) No history of: Skin Problems - Surgical History HEENT Surgeries: Surgical HX of: Eye Surgery (Bilateral cataract), Thyroid Surgery (Total Thyroidectomy), Tonsilectomy & Adenoidectomy (194) Abdominal Surgeries: Surgical HX of: Abdominal Surgery (Colectomy), Colonoscopy (Dr. Franco) Reproductive Surgeries: Surgical HX of;: Breast Surgery (Bilateral mastectomy), Gynecologic Surgery (RT/LT Mastectomy) Orthopedic Surgeries: Surgical HX of;: Orthopedic Surgery (Right shoulder Muscle Surgery;Pinning 02/2015 Lt Arm), Total Knee Replacement (RT/LT) - Family History Family History: Reports;: Family Cancer (Parents siblings son), Family Diabetes , Family Heart Disease, Family Hypertension (Brother), Family Stroke (Brother) - Social History Smoking Status: Never smoker Frequency of Alcohol Use: None Type of Drug Use: None Cardiology Physical Exam - Constitutional Vitals: Vital Signs Temp Pulse Resp BP Pulse Ox 97.1 F L 65 18 156/68 94 L 09/22/16 16:00 09/22/16 16:00 09/22/16 16:00 09/22/16 16:00 09/22/16 16:00 Intake and Output 09/22/16 09/22/16 09/22/16 07:59 15:59 23:59 Intake Total 1120 / 1120 1700 / 1700 Balance 1120 / 1120 1700 / 1700 Intake: IV 1000 / 1000 1000 / 1000 1/2Ns 1,000 ml @ 125 mls/ 1000 / 1000 1000 / 1000 hr IV .[facility] Rx#: [id number] Oral 120 / 120 700 / 700 Other: Voiding Method Bedside Commode # Voids 2 2,100 # Bowel Movements 1 Weight 104.961 kg Patient Weight 09/22/16 23:59 Weight 104.961 kg General appearance: no acute distress, over weight - Head Head exam: Present: normal inspection, normocephalic, atraumatic - Neck Neck exam: Present: normal inspection - Respiratory Respiratory exam: Present: rales (Few basilar rales). Absent: stridor, wheezes - Cardiovascular Cardiovascular exam: Present: regular rate and rhythm. Absent: diastolic murmur , rubs - GI/Abdominal GI/Abdominal exam: Present: soft. Absent: tenderness - Extremities Exam Extremities exam: Absent: edema Result/EKG - Labs CBC & BMP: 09/22/16 04:13 09/22/16 04:13 Labs: Laboratory Results - last 24 hr 09/21/16 09/21/16 09/21/16 16:58 21:27 22:15 WBC RBC Hgb Hct MCV MCH MCHC RDW Plt Count MPV Neut % (Auto) Lymph % (Auto) Robertson % (Auto) Eos % (Auto) Baso % (Auto) Neut # (Auto) Lymph # (Auto) Robertson # (Auto) Eos # (Auto) Baso # (Auto) Immature Gran % Nucleated RBC % Immature Gran # Nucleated RBCs # Sodium Potassium Chloride Carbon Dioxide Anion Gap BUN Creatinine GFR Calculation BUN/Creatinine Ratio Glucose POC Glucose 121 H Calculated Osmolality Calcium Total Bilirubin AST ALT Alkaline Phosphatase Total Creatine Kinase 24 L CK-MB (CK-2) 1.5 Troponin I < 0.015 Total Protein Albumin Globulin Albumin/Globulin Ratio Triglycerides Cholesterol LDL Cholesterol VLDL Cholesterol HDL Cholesterol Heart Disease Risk Ratio Prolactin Urine Color Yellow Urine Appearance Clear Urine pH 5.0 Ur Specific [place] 1.008 Urine Protein Negative Urine Glucose (UA) Negative Urine Ketones Negative Urine Blood Moderate Urine Nitrate Negative Urine Bilirubin Negative Urine Urobilinogen < 2.0 H Urine Leukocytes Negative Urine RBC 22 Urine WBC 3 Ur Squamous Epith Cells Occasional Hyaline Casts 3 Ur Culture Indicated? Not indicated 09/22/16 09/22/16 09/22/16 04:12 04:13 04:13 WBC 8.6 RBC 3.81 Hgb 11.6 L Hct 34.5 L MCV 90.6 MCH 30 MCHC 33.6 RDW 13.3 Plt Count 194 MPV 11.0 Neut % (Auto) 69.5 Lymph % (Auto) 19.3 L Robertson % (Auto) 7.5 Eos % (Auto) 2.7 Baso % (Auto) 0.5 Neut # (Auto) 6.0 Lymph # (Auto) 1.7 Robertson # (Auto) 0.6 Eos # (Auto) 0.2 Baso # (Auto) 0.0 Immature Gran % 0.5 Nucleated RBC % 0.0 Immature Gran # 0.04 Nucleated RBCs # 0.00 Sodium 138 Potassium 4.2 Chloride 100 Carbon Dioxide 30 Anion Gap 12.2 BUN 27 H Creatinine 1.20 H GFR Calculation 48 BUN/Creatinine Ratio 22.00 H Glucose 150 H POC Glucose Calculated Osmolality 282.7 Calcium 7.8 L Total Bilirubin < 0.39 AST 16 ALT 20 Alkaline Phosphatase 74 Total Creatine Kinase 30 D CK-MB (CK-2) < 1.0 Troponin I < 0.015 Total Protein 5.8 L Albumin 2.8 L Globulin 3.0 Albumin/Globulin Ratio 0.9 L Triglycerides 120 Cholesterol 186 LDL Cholesterol 113.0 VLDL Cholesterol 24.0 HDL Cholesterol 49 Heart Disease Risk Ratio 3.80 Prolactin Urine Color Urine Appearance Urine pH Ur Specific [place] Urine Protein Urine Glucose (UA) Urine Ketones Urine Blood Urine Nitrate Urine Bilirubin Urine Urobilinogen Urine Leukocytes Urine RBC Urine WBC Ur Squamous Epith Cells Hyaline Casts Ur Culture Indicated? 09/22/16 04:13 WBC RBC Hgb Hct MCV MCH MCHC RDW Plt Count MPV Neut % (Auto) Lymph % (Auto) Robertson % (Auto) Eos % (Auto) Baso % (Auto) Neut # (Auto) Lymph # (Auto) Robertson # (Auto) Eos # (Auto) Baso # (Auto) Immature Gran % Nucleated RBC % Immature Gran # Nucleated RBCs # Sodium Potassium Chloride Carbon Dioxide Anion Gap BUN Creatinine GFR Calculation BUN/Creatinine Ratio Glucose POC Glucose Calculated Osmolality Calcium Total Bilirubin AST ALT Alkaline Phosphatase Total Creatine Kinase CK-MB (CK-2) Troponin I Total Protein Albumin Globulin Albumin/Globulin Ratio Triglycerides Cholesterol LDL Cholesterol VLDL Cholesterol HDL Cholesterol Heart Disease Risk Ratio Prolactin 6.6 Urine Color Urine Appearance Urine pH Ur Specific [place] Urine Protein Urine Glucose (UA) Urine Ketones Urine Blood Urine Nitrate Urine Bilirubin Urine Urobilinogen Urine Leukocytes Urine RBC Urine WBC Ur Squamous Epith Cells Hyaline Casts Ur Culture Indicated?
--- NOTE | 2016-09-22 16:53 | Event Note ---
Dr. Hernandez evaluate Ms. Harper noted that partial seizures was in her differential although he thought the vagal was more likely. At this time she is asymptomatic and I believe she is received maximal hospital benefit. We will discharge her to home on proton pump inhibitor, and continuing her home medications as previously. We will try to schedule her close follow-up with Dr. Quiroz as well as follow-up with Dr. Oreilly
[2016-09-22] MEDS ORDERED: LATANOPROST 0.005% OPH SOLN 2.5 ML BOTTLE BOTH EYES SCH (21:00)
[2016-09-22] MEDS ORDERED: CALCIUM (CITRATE)/VITAMIN D 200 MG-125 UNIT TABLET PO SCH (21:00)
[2016-09-23] MEDS ORDERED: LEVOTHYROXINE 175 MCG TABLET PO SCH (07:00)
[2016-09-23] MEDS ORDERED: AZITHROMYCIN 250 MG TABLET PO SCH (09:00)
[2016-09-23] MEDS ORDERED: CYANOCOBALAMIN 500 MCG TABLET PO SCH (09:00)
== END 2016-09-22 17:55 | disposition home or self-care (01) ==
LOC: N.TELEN
PROVIDERS: ADMIT Internal Medicine Cardiovascular Disease; ATTEND Internal Medicine Cardiovascular Disease